=== PATIENT | female | born 1960 | race Caucasian/White ===

== ENCOUNTER 2017-09-10 19:49 | Inpatient (IN) | payer OTHER ==
[2017-09-10 20:43] LABS: Bilirubin Negative (Negative); Blood, Urine Small (Negative); Glucose, Urine (Dipstick) >=1000 mg/dL (Negative); Ketone, Urine 80 mg/dL (Negative); Nitrite Negative (Negative); Protein, Urine (Dipstick) 30 mg/dL (Neg-Trace); Urobilinogen 0.2 mg/dL (0.2-1.0)
[2017-09-10 20:48] LABS: Bacteria/HPF Rare-Few HPF (None Seen); Hyaline Casts/LPF 0-3 HYALINE CAST LPF (0-3 Hyaline); WBC/HPF 21-50 HPF (0-3)
[2017-09-10 20:50] LABS: #Eosinphils 0.1 thou/uL (0.0-0.7); #Lymphocytes 1.5 thou/uL (1.20-3.40); #Monocytes 0.9 thou/uL (0.11-0.59); #Neutrophils 13.7 thou/uL (1.40-6.50); %Basophils 0.1 % (0.0-1.0); %Eosinophils 0.5 % (0.0-10.0); %Lymphocytes 9.1 % (21.0-51.0); %Monocytes 5.3 % (0.0-10.0); Hematocrit 41.1 % (36.0-47.0); Mean Platelet Volume 8.1 fL (7.4-10.4); Red Blood Cell (RBC) Count 4.68 mill/uL (4.20-5.40); White Blood Cell (WBC) Count 16.2 thou/uL (4.8-10.8)
[2017-09-10 20:56] LABS: Yeast-All Forms 1+ HPF (None Seen)
[2017-09-10] MEDS ORDERED: Ondansetron HCl/PF 4 MG/2 ML Vial ONE (20:56)
[2017-09-10] MEDS ORDERED: Morphine 4 MG/ML VIAL ONE (20:56)
[2017-09-10 21:04] LABS: Lactic Acid - Sepsis 2.4 mmol/L (0.5-2.2)
[2017-09-10 21:08] LABS: ALT (SGPT) 16 U/L (8-55); AST (SGOT) 15 U/L (5-34); Alkaline Phosphatase 127 U/L (40-150); Anion Gap 14 mmol/L (10-20); BUN (Urea Nitrogen) 6 mg/dL (9.8-20.1); Bilirubin, Total 2.2 mg/dL (0.2-1.2); Calc. Creatinine Clearance 0 mL/min (70-130); Calcium 9.4 mg/dL (7.8-10.44); Carbon Dioxide 25 mmol/L (22-29); Chloride 100 mmol/L (98-107); Estimated GFR-MDRD 79; Globulin 3.9 g/dL (2.4-3.5); Protein, Total 7.5 g/dL (6.0-8.3)
--- NOTE | 2017-09-10 21:24 | RAD ---
RIGHT FOOT THREE VIEWS: History: Right foot pain and swelling. Vomiting. Comparison: None. FINDINGS: There is soft tissue swelling. No radiographic evidence of osteomyelitis. Lisfranc alignment is maintained. There is no fracture. IMPRESSION: 1. Soft tissue swelling. Correlate for cellulitis. 2. No fracture. POS: [facility]
--- NOTE | 2017-09-10 22:13 | PDOC.EVN ---
Event Note - Event Note Event Note: [id number] 1. rT FOOT CELLULITIS 2. hYPOKALEMIA 3. DM type 2 plan; see orders
[2017-09-10] MEDS ORDERED: Piperacillin/Tazobactam 4.5 GM in Sodium Chloride 0.9% 100 ML IVPB SCH (22:30)
[2017-09-10] MEDS ORDERED: Acetaminophen 325 MG TAB PO PRN (23:24)
[2017-09-10] MEDS ORDERED: HYDROcodone/Acetaminophen 5/325 mg Tablet PO PRN (23:24)
[2017-09-10] MEDS ORDERED: Sodium Chloride 0.9% 1,000 ML IV SCH (23:30)
[2017-09-11 04:05] LABS: #Eosinphils 0.1 thou/uL (0.0-0.7); #Lymphocytes 1.7 thou/uL (1.20-3.40); #Monocytes 0.8 thou/uL (0.11-0.59); #Neutrophils 9.3 thou/uL (1.40-6.50); %Basophils 0.1 % (0.0-1.0); %Eosinophils 0.7 % (0.0-10.0); %Monocytes 6.4 % (0.0-10.0); Hematocrit 32.5 % (36.0-47.0); Mean Platelet Volume 8.1 fL (7.4-10.4); Red Blood Cell (RBC) Count 3.72 mill/uL (4.20-5.40); White Blood Cell (WBC) Count 11.8 thou/uL (4.8-10.8)
[2017-09-11 04:18] LABS: Anion Gap 11 mmol/L (10-20); BUN (Urea Nitrogen) 6 mg/dL (9.8-20.1); Calc. Creatinine Clearance 0 mL/min (70-130); Calcium 8.2 mg/dL (7.8-10.44); Carbon Dioxide 25 mmol/L (22-29); Chloride 104 mmol/L (98-107); Estimated GFR-MDRD 87
--- NOTE | 2017-09-11 06:34 | HP ---
DATE OF ADMISSION: 09/10/2017 CHIEF COMPLAINT: Right foot pain. HISTORY OF PRESENT ILLNESS: Patient is a 56-year-old female with no significant past medical history , started having right foot swelling and erythema symptoms started approximately 2 weeks back after s he stepped on the thorn. Patient's symptoms persisted, so patient went and saw the PCP on last . Patient was started on Levaquin since then. Patient is taking Levaquin, but the symptoms did not get better. Patient had some pus drainage, so the son had drained the abscess, tied the right fo ot with a needle on Sunday morning. Since then, the pain persisted and they got worse / associ ed with some swelling. Complains of pain getting worse on walking, complains some pus drainage also, complains of right foot erythema. Denies any fever, but complains of chills. PAST MEDICAL HISTORY: None. PAST SURGICAL HISTORY: Hysterectomy. SOCIAL HISTORY: Denies smoking, denies alcohol, denies any drugs. FAMILY HISTORY: Positive for heart problems. REVIEW OF SYSTEMS: Constitutional: Positive for chills. Eyes: Denies any vision problems. Ears: Denies any hearing loss. Neck: Denies any neck pain. Cardiovascular System: Denies any chest soila ns or palpitations. Respiratory system: Denies any cough, denies any sputum production. Gastrointe stinal: Denies . Musculoskeletal: Positive for right foot swelling and right foot erythema. Integumentary: Positive for right foot erythema. Cranial nerve system: Denies syncope. All other review of systems are reviewed and are negative. PHYSICAL EXAMINATION: CONSTITUTIONAL/VITAL SIGNS: At the time of H and P performed, blood pressure is 111/52, heart rate o f 104, pulse ox 99%. GENERAL: The patient appears tired. HEENT: Anterior naris patent. Nose normal. Ears normal. Teeth intact. Tongue is moist. NECK: Supple, no JVD. CARDIOVASCULAR SYSTEM: S1, S2 present. Regular rate and rhythm, no murmurs, no rubs, no gallops. RESPIRATORY SYSTEM: No wheezing, no rhonchi. Breath sounds bilaterally. GASTROINTESTINAL SYSTEM: Abdomen is soft, nontender, no guarding, no organomegaly, no masses felt. MUSCULOSKELETAL: Positive for right foot erythema. Positive for right foot pus drainage seen on the plantar side. Positive for swelling, positive for warm to touch. INTEGUMENTARY: Positive for right foot erythema. PSYCHIATRIC: Mood appropriate at this time. CRANIAL NERVOUS SYSTEM: Awake, follows commands. Speech clear. Strength intact. Sensory intact. LABORATORY DATA: Labs at the time of H and P performed, white count 16.2, platelet count is 270. BM P shows sodium 136, potassium 3, chloride 100, CO2 25, BUN of 6, creatinine 0.76, lactic acid 2.4. A lbumin 3.9. UA positive for 7-10 rbc's, 21 to 50 wbc's. X-ray of the foot positive for soft tissue swelling cellulitis. ASSESSMENT AND PLAN: The patient is a 56-year-old female: 1. Right foot cellulitis plus abscess. Plan to consult . Plan to start patient on intravenous antibiotics. Plan to monitor the patient closely. Plan to keep patient n.p.o. after midnight. 2. Sepsis. Continue intravenous antibiotics. We will send blood cultures also. We will follow the patient closely. 3. Pain, p.r.n. pain meds. 4. Hypokalemia. Replace potassium. 5. Diabetes type 2, new onset. Monitor blood sugars. We will check A1c levels also. We will start patient on insulin sliding scale. The case was discussed in detail with the patient.
[2017-09-11] MEDS ORDERED: Morphine 2 mg/2ml in 0.9% NaCl PF SYRINGE ONE (06:56)
[2017-09-11] MEDS ORDERED: Acetaminophen 1,000 MG in Premix Bag 1 BAG IVPB PRN (08:52)
[2017-09-11] MEDS ORDERED: Ketorolac Tromethamine 30 MG/ML VIAL IVP PRN (08:52)
--- NOTE | 2017-09-11 08:59 | HP ---
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 She 2 weeks ago experienced a thorn in her plantar right foot. Today is and Sunday last week her physician started her on Levaquin. She has had some developing infect ion. On Sunday her son squeezed the pus out of the plantar wound. She presents to the emergency r oom last night, ER hold, because of bed shortages and plain x-rays of foot obtained and noted to reve al soft tissue swelling, but no bony changes. Orthopedic consultation was made for the deep infectio n of the right foot. I was asked by Orthopedics to see her instead. The patient previously did not have a diagnosis of any medical problems. In the emergency room, her Accu-Cheks were noted to be liv vated to 295. Lactic acid 2.4. She has been started on vancomycin and Zosyn, in fact is receiving h er second dose of vancomycin this morning. ALLERGIES: None. TOBACCO: None. ALCOHOL: None. MEDICATIONS: None at home. PAST SURGICAL HISTORY: Total abdominal hysterectomy, unilateral salpingo-oophorectomy, colonoscopy i n March 2017 that was normal. PAST MEDICAL HISTORY: Noncontributory except for newly diagnosed diabetes this admission. REVIEW OF SYSTEMS: Ten point noncontributory. No cardiac history. PHYSICAL EXAMINATION: VITAL SIGNS: Blood pressure 104/46, 72, 14, 98.4 degrees, 88 kilograms. HEENT: Unremarkable. LUNGS: Clear to auscultation. CARDIAC: Regular rate and rhythm without murmur or gallop. ABDOMEN: Soft, nontender. EXTREMITIES: Palpable femoral, popliteal, dorsalis pedis, posterior tibial pulses. Right foot revea ls severe cellulitis over the dorsum of foot and plantar. She has a plantar ulcer beneath the third toe metatarsophalangeal area. This is a small opening, but there is purulent discharge, when I compr ess it, it is very tender. Cultures were submitted, but difficult to obtain deep cultures due to the tenderness. There is severe swelling and cellulitis. LABORATORY: Sodium 137, potassium 3.4, BUN 6, creatinine 0.7, glucose 295. White count 16 on admiss ion, at 11:00 repeat this morning, hemoglobin 11. ASSESSMENT AND PLAN: 1. Severe diabetic infection, right foot. Will plan incision and drainage of the abscess and amputa tion of toes as indicated. Hopefully, we can avoid this. We will probably place a wound VAC. Risk of infection, bleeding, reoperation, amputation, and she understands she will have an open wound with wound care, probably a VAC dressing. She will need intravenous antibiotics for a few days. I expec t hospitalization at least 2-4 days. She will need oral antibiotics once discharged home. 2. Newly diagnosed diabetes. 3. Metabolic syndrome with obesity.
[2017-09-11] MEDS ORDERED: Lactated Ringer's 1,000 ML IV SCH (09:00)
[2017-09-11] MEDS ORDERED: Heparin 5,000 UNITS/ML VIAL ONE (09:06)
[2017-09-11] MEDS ORDERED: Fentanyl 100 MCG/2 ML VIAL ONE (10:55)
[2017-09-11] MEDS ORDERED: Insulin Regular 300 UNITS/3 ML VIAL ONE (11:04)
[2017-09-11] MEDS ORDERED: Ondansetron HCl/PF 4 MG/2 ML Vial IVP PRN (12:54)
[2017-09-11] MEDS ORDERED: HYDROmorphone 2 MG/ML VIAL SLOW IVP PRN (12:54)
[2017-09-11] MEDS ORDERED: HYDROmorphone 0.5 MG/0.5 ML SYRINGE ONE ×2 (12:59→14:38)
--- NOTE | 2017-09-11 13:17 | PDOC.PN ---
- Subjective Encounter Start Date: 09/11/17 Encounter Start Time: 11:30 Subjective: is npo to go to OR -: no sob -: had thorn injury 2 weeks back - Objective MAR Reviewed: Yes Result Diagrams: 09/11/17 03:33 09/11/17 03:33 Additional Labs: Accuchecks 09/11/17 10:58 POC Glucose 241 H Phys Exam - Physical Examination HEENT: PERRLA, moist MMs Neck: no JVD, supple Respiratory: no wheezing, no rales Cardiovascular: RRR, no significant murmur Gastrointestinal: soft, non-tender, positive bowel sounds Musculoskeletal: pulses present right foot edema, has plantar ulcer over 2,3,4 metatarsal with purulence+ Neurological: non-focal, moves all 4 limbs Psychiatric: A&O x 3 Dx/Plan (1) Diabetic ulcer of right foot Code(s): E11.621 - TYPE 2 DIABETES MELLITUS WITH FOOT ULCER; L97.519 - NON-PRS CHRONIC ULCER OTH PRT RIGHT FOOT W UNSP SEVERITY Status: Acute Qualifiers: Diabetic foot ulcer location: midfoot Diabetes mellitus type: type 2 (2) DM type 2 (diabetes mellitus, type 2) Status: Acute Qualifiers: Diabetes mellitus complication status: with unspecified complications 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: without [place] use Qualified Code( s): E11.8 - Type 2 diabetes mellitus with unspecified complications Comment: new onset (3) Hypokalemia Code(s): E87.6 - HYPOKALEMIA Status: Acute (4) Chronic anemia Code(s): D64.9 - ANEMIA, UNSPECIFIED Status: Chronic (5) UTI (urinary tract infection) Status: Acute Qualifiers: Urinary tract infection type: acute cystitis Hematuria presence: without hematuria Qualified Code(s): N30.00 - Acute cystitis without hematuria (6) Sepsis Code(s): A41.9 - SEPSIS, UNSPECIFIED ORGANISM Status: Acute Qualifiers: Sepsis type: sepsis due to unspecified organism Qualified Code(s): A41.9 - Sepsis, unspecified organism - Plan is on vanc and zosyn -: will add metformin 500mg bid with coverage -: replace potassium -: is going for debridement to OR today -: will f/u * . Review of Systems - Medications/Allergies Allergies/Adverse Reactions: Allergies Allergy/AdvReac Type Severity Reaction Status Date / Time No Known Allergies Allergy Unverified 09/10/17 22:23 Medications: Current Medications Acetaminophen (Tylenol) 650 mg PO Q4H PRN PRN Reason: Headache/Fever or Pain Heparin Sodium (Porcine) (Heparin) 5,000 units SC TID MARCELO Hydromorphone HCl (Pacu-Dilaudid) 0.5 mg SLOW IVP Q10MIN PRN PRN Reason: Moderate to Severe Pain (6-10) Stop: 09/11/17 15:54 Piperacillin Sod/Tazobactam (Sod 4.5 gm/ Sodium Chloride) 100 mls @ 200 mls/hr IVPB Q8HR MARC[facility]O Vancomycin HCl 1.5 gm/ Sodium (Chloride) 300 mls @ 200 mls/hr IVPB Q12HR [facility]O Acetaminophen 1,000 mg/ Device 100 mls @ 400 mls/hr IVPB Q6H PRN PRN Reason: Fever/Mild Pain Stop: 09/12/17 08:53 Ketorolac Tromethamine (Toradol) 30 mg IVP Q6H PRN PRN Reason: Moderate Pain (4-6) Stop: 09/16/17 08:53 Morphine Sulfate (Pacu-Morphine Sulfate) 4 mg SLOW IVP ONE PRN PRN Reason: Moderate to Severe Pain (6-10) Stop: 09/11/17 15:54 Morphine Sulfate/Sodium Chloride (Morphine 0.9% Nacl Pf 2 Mg/2ml) 2 mg SLOW IVP Q4H PRN PRN Reason: Severe Pain (7-10) Ondansetron HCl (Pacu-Zofran) 4 mg IVP ONE PRN PRN Reason: Nausea/Vomiting Stop: 09/11/17 15:54 Polyethylene Glycol (Miralax) 17 gm PO DAILY MARCELO Sodium Chloride (Flush - Normal Saline) 10 ml IVF Q12HR MARCELO Sodium Chloride (Flush - Normal Saline) 10 ml IVF PRN PRN PRN Reason: Saline Flush
[2017-09-11 16:10] VITALS: BMI 31.8
[2017-09-11] MEDS ORDERED: Metoclopramide HCl 10 MG/2 ML VIAL ONE (16:55)
[2017-09-11] MEDS ORDERED: Propofol 200 MG/20 ML VIAL ONE (16:55)
[2017-09-11] MEDS ORDERED: ePHEDrine/0.9% NaCl/PF SYRINGE 50 mg/10 ml ONE (16:55)
[2017-09-11] MEDS ORDERED: PHENYLEPHRINE-NS 100 MCG/ML 10 ML SYRINGE ONE (16:55)
[2017-09-11] MEDS ORDERED: Ondansetron HCl/PF 4 MG/2 ML Vial ONE (16:55)
[2017-09-11] MEDS ORDERED: FLU VACC QS2017-18 36 mo. & older 0.5 ML SYRINGE IM ONE (17:00)
[2017-09-11] MEDS ORDERED: Acetaminophen 500 MG TAB PO PRN (18:05)
[2017-09-11] MEDS ORDERED: traMADol HCl 50 MG TAB PO PRN ×2 (18:05)
[2017-09-11] MEDS ORDERED: Ibuprofen 200 MG TAB PO PRN (18:05)
--- NOTE | 2017-09-11 18:19 | OP ---
DATE OF PROCEDURE: 09/11/2017 PREOPERATIVE DIAGNOSES: Severe diabetic foot infection right with status post plantar thorn injury t wo weeks ago, newly diagnosed diabetes mellitus. No evidence of peripheral arterial disease. POSTOPERATIVE DIAGNOSES: Severe diabetic foot infection right with status post thorn plantar injury two weeks ago, newly diagnosed diabetes mellitus. No evidence of peripheral arterial disease. Deep infection plantar with undermining. PROCEDURES PERFORMED: Sharp excision blistering skin plantar foot with incision and drainage of woun d, approximately 3 cm in length and deep approximately 2 cm undermining with necrotic tissue with a s harp excisional debridement of necrotic undermining tissue, deep cultures submitted. Wound Care arri kaley and placed a wound VAC on the wound. No evidence radiologically or clinically of osteomyelitis. ANESTHESIA: General anesthesia. PROCEDURE IN DETAIL: The patient was taken to the operating room where under general anesthesia, the right foot was prepared with ChloraPrep and draped in routine fashion. She had a cellulitic reactio n over the dorsum of the foot. A small incision was made longitudinally between the second and third and cleaned the third and fourth toes and there was no evidence of purulent material, but this wound was left opened and irrigated. On the plantar aspect of the foot, there was a penetrating wound liz t had undermined circumferentially to the base of the toes and proximally. This was opened longitudi gerri exposing undermined area and debrided sharply necrotic underlying soft tissue. Deep cultures o btained and submitted to microbiology. 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 Wound Care team arri kaley and placed a wound VAC. The patient tolerated the procedure well.
[2017-09-11] MEDS: Piperacillin/Tazobactam 4.5 GM in Sodium Chloride 0.9% 100 ML IVPB SCH ×3 (20:19→22:23)
[2017-09-11] MEDS: Heparin 5,000 UNITS/ML VIAL SC SCH ×3 (21:30→23:34)
[2017-09-11] MEDS: Vancomycin HCl 1.5 GM in Sodium Chloride 0.9% 250 ML 300 ML IVPB SCH ×2 (21:32→23:24)
[2017-09-11] MEDS: Enoxaparin Sodium 40 MG/0.4 ML SYRINGE SC SCH (22:22)
[2017-09-12] MEDS: Piperacillin/Tazobactam 4.5 GM in Sodium Chloride 0.9% 100 ML IVPB SCH ×3 (06:03→22:52)
[2017-09-12 06:09] LABS: Hemoglobin A1c 12.7 % (4.0-6.0)
[2017-09-12] MEDS: metFORMIN 500 MG TAB PO SCH ×3 (08:00→16:38)
[2017-09-12 08:06] LABS: Vancomycin, Trough 29.8 ug/mL
[2017-09-12] MEDS: Vancomycin HCl 1.5 GM in Sodium Chloride 0.9% 250 ML 300 ML IVPB SCH ×2 (08:45→22:52)
[2017-09-12] MEDS ORDERED: Ondansetron ODT 4 MG TAB PO PRN (08:47)
[2017-09-12] MEDS: Ondansetron HCl/PF 4 MG/2 ML Vial IVP PRN ×3 (09:16→22:29)
[2017-09-12] MEDS: Polyethylene Glycol 3350 17 GM Packet PO SCH (11:14)
[2017-09-12] MEDS ORDERED: Dextrose 5% in Water 1,000 ML IV PRN (11:56)
[2017-09-12] MEDS ORDERED: Insulin Regular 300 UNITS/3 ML VIAL SC PRN (11:56)
[2017-09-12] MEDS ORDERED: Dextrose 50% Abboject 50 ML SYRINGE IVP PRN (11:56)
--- NOTE | 2017-09-12 12:06 | PRG ---
DATE OF SERVICE: 09/12/2017 Ms. Kurtz is doing well after drainage of her foot abscess. She has a wound VAC. We will plan to view this wound tomorrow. She remains afebrile. Cultures today, many gram positive cocci in pairs a nd chains and identification pending. ASSESSMENT AND PLAN: 1. View wound tomorrow. Continue antibiotics and wound care. Plan, discharge home on wound VAC, st art her on oral antibiotics. 2. Newly diagnosed diabetes mellitus, hemoglobin A1c 12. The patient reports weight loss of 50 poun ds over the last year. She reports that she lost her four years ago and has continued to los e weight. She had EGD and colonoscopy earlier this year that was normal.
[2017-09-12] MEDS: Insulin Regular 300 UNITS/3 ML VIAL SC PRN ×2 (12:54→16:35)
--- NOTE | 2017-09-12 14:23 | PDOC.PN ---
- Subjective Encounter Start Date: 09/12/17 Encounter Start Time: 12:00 Subjective: feels better, some nausea - Objective MAR Reviewed: Yes Vital Signs & Weight: Vital Signs (12 hours) Temp Pulse Resp BP Pulse Ox 09/12/17 08:00 97.8 F 75 16 98/64 94 L 09/12/17 04:00 98.4 F 78 20 100/62 92 L Weight Admit Weight 197 lb Weight 197 lb Result Diagrams: 09/11/17 03:33 09/11/17 03:33 Additional Labs: Accuchecks 09/12/17 09/12/17 09/11/17 11:36 04:21 19:09 POC Glucose 312 H 323 H 273 H 09/11/17 09/11/17 16:27 13:25 POC Glucose 255 H 230 H Phys Exam - Physical Examination HEENT: PERRLA, moist MMs Neck: no JVD, supple Respiratory: no wheezing, no rales Cardiovascular: RRR, no significant murmur Gastrointestinal: soft, non-tender, positive bowel sounds Musculoskeletal: pulses present right foot in dressing and wound vac Neurological: non-focal, moves all 4 limbs Psychiatric: A&O x 3 Dx/Plan (1) Diabetic ulcer of right foot Code(s): E11.621 - TYPE 2 DIABETES MELLITUS WITH FOOT ULCER; L97.519 - NON-PRS CHRONIC ULCER OTH PRT RIGHT FOOT W UNSP SEVERITY Status: Acute Qualifiers: Diabetic foot ulcer location: midfoot Diabetes mellitus type: type 2 (2) DM type 2 (diabetes mellitus, type 2) Status: Acute Qualifiers: Diabetes mellitus complication status: with unspecified complications Diabetes mellitus longterm insulin use: without longterm use Qualified Code( s): E11.8 - Type 2 diabetes mellitus with unspecified complications Comment: new onset (3) Hypokalemia Code(s): E87.6 - HYPOKALEMIA Status: Acute (4) Chronic anemia Code(s): D64.9 - ANEMIA, UNSPECIFIED Status: Chronic (5) UTI (urinary tract infection) Status: Acute Qualifiers: Urinary tract infection type: acute cystitis Hematuria presence: without hematuria Qualified Code(s): N30.00 - Acute cystitis without hematuria (6) Sepsis Code(s): A41.9 - SEPSIS, UNSPECIFIED ORGANISM Status: Acute Qualifiers: Sepsis type: sepsis due to unspecified organism Qualified Code(s): A41.9 - Sepsis, unspecified organism - Plan labs in am -: will start her on levemir, hold metformin if she is nauseated -: is on vanc and zosyn -: cm for help with wound vac for outpt use per -: to amb as tolerated, ultram, motrin prn * . Review of Systems - Medications/Allergies Allergies/Adverse Reactions: Allergies Allergy/AdvReac Type Severity Reaction Status Date / Time No Known Allergies Allergy Unverified 09/10/17 22:23 Medications: Current Medications Acetaminophen (Tylenol) 1,000 mg PO Q6H PRN PRN Reason: Moderate to Severe Pain (6-10) Dextrose/Water (Dextrose 50%) 25 gm IVP PRN PRN PRN Reason: HYPOGLYCEMIA PROTOCOL Enoxaparin Sodium (Lovenox) 40 mg SC 2100 MARCELO Last Admin: 09/11/17 22:22 Dose: 40 mg Glucagon (Glucagon) 1 mg IM PRN PRN PRN Reason: HYPOGLYCEMIA PROTOCOL Piperacillin Sod/Tazobactam (Sod 4.5 gm/ Sodium Chloride) 100 mls @ 200 mls/hr IVPB Q8HR MARCELO Last Admin: 09/12/17 06:03 Dose: 100 mls Vancomycin HCl 1.5 gm/ Sodium (Chloride) 300 mls @ 200 mls/hr IVPB Q12HR MARCELO Last Admin: 09/12/17 08:45 Dose: Not Given Dextrose/Water (D5w) 1,000 mls @ 0 mls/hr IV INF PRN; As Directed PRN Reason: HYPOGLYCEMIA PROTOCOL Insulin Detemir 10 units/ (Miscellaneous Medication) 0.1 mls @ 0 mls/hr SC BID MARCELO Ibuprofen (Motrin) 600 mg PO Q6H PRN PRN Reason: Pain Insulin Human Regular (Humulin R) 0 units SC .MODERATE SLIDING SC PRN; Protocol PRN Reason: MODERATE SLIDING SCALE Last Admin: 09/12/17 12:54 Dose: 8 unit Insulin Human Regular (Humulin R) 0 units SC .BEDTIME SLIDING SC PRN; Protocol PRN Reason: BEDTIME SLIDING SCALE Ketorolac Tromethamine (Toradol) 30 mg IVP Q6H PRN PRN Reason: Moderate Pain (4-6) Stop: 09/16/17 08:53 Metformin HCl (Glucophage) 500 mg PO BID-[facility] Last Admin: 09/12/17 11:13 Dose: Not Given Morphine Sulfate/Sodium Chloride (Morphine 0.9% Nacl Pf 2 Mg/2ml) 2 mg SLOW IVP Q4H PRN PRN Reason: Severe Pain (7-10) Ondansetron HCl (Zofran) 4 mg IVP Q6H PRN PRN Reason: Nausea/Vomiting Last Admin: 09/12/17 09:16 Dose: 4 mg Ondansetron HCl (Zofran Odt) 4 mg PO Q6H PRN PRN Reason: Nausea/Vomiting Polyethylene Glycol (Miralax) 17 gm PO DAILY [facility] Last Admin: 09/12/17 11:14 Dose: 17 gm Sodium Chloride (Flush - Normal Saline) 10 ml IVF Q12HR [facility] Last Admin: 09/12/17 11:13 Dose: 10 ml Sodium Chloride (Flush - Normal Saline) 10 ml IVF PRN PRN PRN Reason: Saline Flush Tramadol HCl (Ultram) 50 mg PO Q6H PRN PRN Reason: Mild-Moderate Pain (1-5) Tramadol HCl (Ultram) 100 mg PO Q6H PRN PRN Reason: Moderate to Severe Pain (6-10)
--- NOTE | 2017-09-12 18:07 | EKG ---
Test Reason : SURGERY Blood Pressure : / mmHG Vent. Rate : 073 BPM Atrial Rate : 073 BPM P-R Int : 156 ms QRS Dur : 100 ms QT Int : 410 ms P-R-T Axes : 049 035 057 degrees QTc Int : 451 ms Normal sinus rhythm Normal ECG Confirmed by AUSTIN XIAO ([id number]) on 09/12/2017 6:07:10 PM Referred By: LAILA Confirmed By:AUSTIN XIAO
[2017-09-12] MEDS: Enoxaparin Sodium 40 MG/0.4 ML SYRINGE SC SCH (22:30)
[2017-09-12] MEDS: Insulin Detemir 100 UNITS/ML 10 UNITS in Pre-Filled Syringe 1 EACH SC SCH (22:34)
[2017-09-13] MEDS: Piperacillin/Tazobactam 4.5 GM in Sodium Chloride 0.9% 100 ML IVPB SCH (06:29)
[2017-09-13] MEDS: Ondansetron HCl/PF 4 MG/2 ML Vial IVP PRN ×2 (06:29→13:44)
[2017-09-13 07:19] LABS: #Eosinphils 0.3 thou/uL (0.0-0.7); #Lymphocytes 1.5 thou/uL (1.20-3.40); #Monocytes 0.7 thou/uL (0.11-0.59); #Neutrophils 7.1 thou/uL (1.40-6.50); %Basophils 0.3 % (0.0-1.0); %Eosinophils 3.5 % (0.0-10.0); %Lymphocytes 15.6 % (21.0-51.0); %Monocytes 7.1 % (0.0-10.0); Hematocrit 35.3 % (36.0-47.0); Mean Platelet Volume 7.9 fL (7.4-10.4); Red Blood Cell (RBC) Count 4.03 mill/uL (4.20-5.40); White Blood Cell (WBC) Count 9.6 thou/uL (4.8-10.8)
[2017-09-13 07:39] LABS: ALT (SGPT) 16 U/L (8-55); AST (SGOT) 13 U/L (5-34); Alkaline Phosphatase 97 U/L (40-150); Anion Gap 12 mmol/L (10-20); BUN (Urea Nitrogen) 27 mg/dL (9.8-20.1); Calc. Creatinine Clearance 43 mL/min (70-130); Carbon Dioxide 23 mmol/L (22-29); Chloride 107 mmol/L (98-107); Estimated GFR-MDRD 25; Globulin 3.1 g/dL (2.4-3.5); Lipase 22 U/L (8-78); Protein, Total 5.9 g/dL (6.0-8.3)
[2017-09-13] MEDS: Sodium Chloride 0.9% 1,000 ML IV SCH ×2 (08:59→17:47)
[2017-09-13] MEDS: Insulin Detemir 100 UNITS/ML 10 UNITS in Pre-Filled Syringe 1 EACH SC SCH ×2 (09:00→20:31)
[2017-09-13] MEDS: Polyethylene Glycol 3350 17 GM Packet PO SCH (09:01)
--- NOTE | 2017-09-13 12:50 | PDOC.PN ---
- Subjective Encounter Start Date: 09/13/17 Encounter Start Time: 09:45 Subjective: c/o nausea and vomiting, is unable to keep anything down -: no abd pain - Objective MAR Reviewed: Yes Vital Signs & Weight: Vital Signs (12 hours) Temp Pulse Resp BP Pulse Ox 09/13/17 11:07 98.1 F 69 20 129/75 97 09/13/17 08:00 97.5 F L 66 20 114/49 L 96 09/13/17 04:00 98.5 F 75 20 101/61 94 L Weight Admit Weight 197 lb Weight 197 lb I&O: 09/12/17 09/13/17 09/14/17 06:59 06:59 06:59 Intake Total 960 Output Total 600 Balance 360 Result Diagrams: 09/13/17 07:06 09/13/17 07:06 Additional Labs: Accuchecks 09/13/17 09/13/17 09/12/17 11:09 04:24 19:19 POC Glucose 217 H 248 H 233 H 09/12/17 16:18 POC Glucose 231 H Phys Exam - Physical Examination HEENT: PERRLA, moist MMs Neck: no JVD, supple Respiratory: no wheezing, no rales Cardiovascular: RRR, no significant murmur Gastrointestinal: soft, non-tender, no distention, positive bowel sounds Musculoskeletal: no edema, pulses present right foot in wound vac Neurological: non-focal, moves all 4 limbs Psychiatric: A&O x 3 Dx/Plan (1) JONATHAN (acute kidney injury) Code(s): N17.9 - ACUTE KIDNEY FAILURE, UNSPECIFIED Status: Acute (2) Diabetic ulcer of right foot Code(s): E11.621 - TYPE 2 DIABETES MELLITUS WITH FOOT ULCER; L97.519 - NON-PRS CHRONIC ULCER OTH PRT RIGHT FOOT W UNSP SEVERITY Status: Acute Qualifiers: Diabetic foot ulcer location: midfoot Diabetes mellitus type: type 2 (3) DM type 2 (diabetes mellitus, type 2) Status: Acute Qualifiers: Diabetes mellitus complication status: with unspecified complications 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: without 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 use Qualified Code( s): E11.8 - Type 2 diabetes mellitus with unspecified complications Comment: new onset (4) Hypokalemia Code(s): E87.6 - HYPOKALEMIA Status: Acute (5) Chronic anemia Code(s): D64.9 - ANEMIA, UNSPECIFIED Status: Chronic (6) UTI (urinary tract infection) Status: Acute Qualifiers: Urinary tract infection type: acute cystitis Hematuria presence: without hematuria Qualified Code(s): N30.00 - Acute cystitis without hematuria (7) Sepsis Code(s): A41.9 - SEPSIS, UNSPECIFIED ORGANISM Status: Acute Qualifiers: Sepsis type: sepsis due to unspecified organism Qualified Code(s): A41.9 - Sepsis, unspecified organism (8) Nausea & vomiting Code(s): R11.2 - NAUSEA WITH VOMITING, UNSPECIFIED Status: Acute Qualifiers: Vomiting type: unspecified - Plan iv hydration, decrease dose of zosyn, dc vanc -: wound vac for home use need to be arranged -: is on levemir bid, start glipizide, dc metformin -: to amb in hallway as tolerated -: dc plan when her renal function and nausea stabilize * . Review of Systems - Medications/Allergies Allergies/Adverse Reactions: Allergies Allergy/AdvReac Type Severity Reaction Status Date / Time No Known Allergies Allergy Unverified 09/10/17 22:23 Medications: Current Medications Acetaminophen (Tylenol) 1,000 mg PO Q6H PRN PRN Reason: Moderate to Severe Pain (6-10) Dextrose/Water (Dextrose 50%) 25 gm IVP PRN PRN PRN Reason: HYPOGLYCEMIA PROTOCOL Enoxaparin Sodium (Lovenox) 40 mg SC 2100 [facility] Last Admin: 09/12/17 22:30 Dose: 40 mg Glipizide (Glucotrol) 5 mg PO DAILY-[facility] Glucagon (Glucagon) 1 mg IM PRN PRN PRN Reason: HYPOGLYCEMIA PROTOCOL Dextrose/Water (D5w) 1,000 mls @ 0 mls/hr IV INF PRN; As Directed PRN Reason: HYPOGLYCEMIA PROTOCOL Insulin Detemir 10 units/ (Miscellaneous Medication) 0.1 mls @ 0 mls/hr SC BID [facility] Last Admin: 09/13/17 09:00 Dose: 0.1 mls Sodium Chloride (Normal Saline 0.9%) 1,000 mls @ 125 mls/hr IV .Q8H [facility] Last Admin: 09/13/17 08:59 Dose: 1,000 mls Piperacillin Sod/Tazobactam Sod 2.25 gm/ Miscellaneous Medication 1 each/ Sodium Chloride 100 mls @ 200 mls/hr IVPB Q8HR [facility] Insulin Human Regular (Humulin R) 0 units SC .MODERATE SLIDING SC PRN; Protocol PRN Reason: MODERATE SLIDING SCALE Last Admin: 09/12/17 16:35 Dose: 4 unit Insulin Human Regular (Humulin R) 0 units SC .BEDTIME SLIDING SC PRN; Protocol PRN Reason: BEDTIME SLIDING SCALE Ketorolac Tromethamine (Toradol) 30 mg IVP Q6H PRN PRN Reason: Moderate Pain (4-6) Stop: 09/16/17 08:53 Morphine Sulfate/Sodium Chloride (Morphine 0.9% Nacl Pf 2 Mg/2ml) 2 mg SLOW IVP Q4H PRN PRN Reason: Severe Pain (7-10) Ondansetron HCl (Zofran) 4 mg IVP Q6H PRN PRN Reason: Nausea/Vomiting Last Admin: 09/13/17 06:29 Dose: 4 mg Ondansetron HCl (Zofran Odt) 4 mg PO Q6H PRN PRN Reason: Nausea/Vomiting Polyethylene Glycol (Miralax) 17 gm PO DAILY [facility] Last Admin: 09/13/17 09:01 Dose: Not Given Sodium Chloride (Flush - Normal Saline) 10 ml IVF Q12HR [facility] Last Admin: 09/13/17 09:01 Dose: 10 ml Sodium Chloride (Flush - Normal Saline) 10 ml IVF PRN PRN PRN Reason: Saline Flush Tramadol HCl (Ultram) 50 mg PO Q6H PRN PRN Reason: Mild-Moderate Pain (1-5) Tramadol HCl (Ultram) 100 mg PO Q6H PRN PRN Reason: Moderate to Severe Pain (6-10)
[2017-09-13] MEDS: Insulin Regular 300 UNITS/3 ML VIAL SC PRN ×2 (13:41→18:04)
[2017-09-13] MEDS: Piperacillin/Tazobactam 2.25 GM, Admixture Fee 1 EACH in Sodium Chloride 0.9% 100 ML IVPB SCH ×2 (13:51→23:16)
--- NOTE | 2017-09-13 16:43 | CT ---
CT OF THE ABDOMEN AND PELVIS WITHOUT IV CONTRAST: Date: 09/13/17 INDICATION: Abdominal pain, nausea, and vomiting, with a history of recent foot surgery. COMPARISON: None. FINDINGS: There are small bilateral pleural effusions with bibasilar atelectasis. There is a small pericardial effusion. There is a small hiatal hernia. The spleen is upper limits of normal measuring 12.6 cm. There are numerous splenic granuloma. Unopaci fied liver is unremarkable. The pancreas and adrenal glands are unremarkable. There is slight enlargement of the right kidney in relationship to the left with mild perinephric str anding. No hydronephrosis is evident. No renal or ureteral calculus is noted. The bladder is decompre ssed. The colon is of normal caliber. There is a normal appendix in the right lower quadrant. The visualize d small bowel is of normal caliber. No drainable fluid collection is evident. There is scattered degenerative and osteoarthritic change. No definite acute osseous abnormality is e vident. IMPRESSION: 1. Slight asymmetric hypertrophy of the right kidney with mild perinephric stranding may reflect seq uelae of a pyelonephritis. Recommend correlation with the clinical examination and laboratory evaluat ion. No hydronephrosis is grossly evident. 2. Small bilateral pleural effusions and pericardial effusion. 3. Small hiatal hernia. 4. Findings of prior granulomatous disease. 5. Other chronic findings as above. POS: [facility]
[2017-09-13] MEDS: Enoxaparin Sodium 40 MG/0.4 ML SYRINGE SC SCH (20:30)
--- NOTE | 2017-09-13 21:43 | PRG ---
DATE OF SERVICE: 09/13/2017 SUBJECTIVE: Ms. Chacha Kurtz is doing well today. She underwent incision and drainage of a diabe tic foot infection (newly diagnosed diabetic) yesterday. Two days ago, wound VAC was applied. Cultu res revealed Enterococcus and Streptococcus on more recent culture and some yeast species on previous culture. The patient's wound VAC was changed today. Her cellulitis dorsally is resolved. The woun d looks good, dorsally. Plantar the wound looks very good, granulating. Wound VAC was reapplied. T he patient complains of nausea, vomiting and central abdominal pain. She has had episodic upper and central abdominal pain, nausea and vomiting as well as right flank pain for several weeks. She has u [facility] upper and lower endoscopy that were normal. She has had a gallbladder ultrasound in [place] that was normal. Abdomen is soft with mild tenderness in right upper quadrant, central abdomen, but no guarding or rebound. The patient has a long history of diarrhea. She has been having loose stoo ls. This has been a problem for her for sometime. OBJECTIVE: LUNGS: Clear to auscultation. CARDIAC: Regular rate and rhythm without murmur or gallop. ABDOMEN: Soft. Mild tenderness in the right upper quadrant, central abdomen. No guarding or reboun d. EXTREMITIES: Unremarkable. LABORATORY DATA: White count is 9, hemoglobin 11.8. Sodium 139, potassium 3.0, BUN 27 and creatinin e 2.09. Accu-Cheks are 217 now. ASSESSMENT AND PLAN: 1. Diabetic infection foot. Continue wound VAC care. This should do well. 2. Newly diagnosed diabetes. Treatment per Hospitalist. 3. Persistent nausea, vomiting and GI dysfunction. We will obtain oral, but no IV contrast, CAT sca n of abdomen and pelvis. 4. Episodic right flank pain, epigastric pain. We will obtain a CT scan as noted above as well as a HIDA scan with an ejection fraction. Previous ultrasound, she reports was completely normal in [facility]. 5. Chronic kidney disease. BUN 27, creatinine 2.09 and glomerular filtration rate 23. Her renal fu nction was normal on 09/11/2017, but has recently deteriorated. Agree with IV fluid hydration. This may reflect dehydration secondary to gastrointestinal problem. We will check stool Clostridium diff icile.
[2017-09-14] MEDS: Sodium Chloride 0.9% 1,000 ML IV SCH ×4 (02:30→20:47)
[2017-09-14] MEDS: Ondansetron HCl/PF 4 MG/2 ML Vial IVP PRN (05:27)
[2017-09-14] MEDS: Piperacillin/Tazobactam 2.25 GM, Admixture Fee 1 EACH in Sodium Chloride 0.9% 100 ML IVPB SCH ×2 (05:27→15:18)
[2017-09-14 08:08] LABS: #Basophils 0.1 thou/uL (0.0-0.2); #Eosinphils 0.3 thou/uL (0.0-0.7); #Lymphocytes 1.4 thou/uL (1.20-3.40); #Monocytes 0.7 thou/uL (0.11-0.59); #Neutrophils 7.1 thou/uL (1.40-6.50); %Basophils 0.6 % (0.0-1.0); %Eosinophils 3.5 % (0.0-10.0); %Lymphocytes 14.3 % (21.0-51.0); Hematocrit 39.3 % (36.0-47.0); Red Blood Cell (RBC) Count 4.49 mill/uL (4.20-5.40); White Blood Cell (WBC) Count 9.5 thou/uL (4.8-10.8)
[2017-09-14 08:34] LABS: Anion Gap 14 mmol/L (10-20); BUN (Urea Nitrogen) 26 mg/dL (9.8-20.1); Calc. Creatinine Clearance 44 mL/min (70-130); Carbon Dioxide 21 mmol/L (22-29); Chloride 109 mmol/L (98-107); Estimated GFR-MDRD 25
--- NOTE | 2017-09-14 09:48 | PRG ---
DATE OF SERVICE: 09/14/2017 Chacha Kurtz is still having nausea and vomiting. She is passing stool, however. No stool cultures have been obtained. This morning her white count is 9, hemoglobin 13. Her potassium 2.9, BUN stable at 26 and 2.06. CAT scan yesterday without IV contrast, but with oral contrast reveals inflammatory changes around the r ight kidney. Urine cultures 09/10/2017, greater than 10 to the fifth mixed skin and enteric vincent. This was a emma an catch specimen. The patient is to have a HIDA scan today. She has had episodic nausea and gastro intestinal symptoms for several months. Previous ultrasound in [place] was negative. Upper and lowe r endoscopy in [place] she reports as negative recently. ASSESSMENT AND PLAN: Persistent nausea and vomiting, and a newly diagnosed diabetic possibly gastrop aresis. We will await HIDA scan ejection fraction and rule out biliary dysfunction. From a foot inf ection standpoint, the patient is ready to be discharged home with oral antibiotics and outpatient wo und VAC. She can follow up in my office in 2-[address] Pink will be covering over the weekend . Please call if needed. Otherwise, I will see her Sunday.
[2017-09-14] MEDS: Potassium Chloride 40 MEQ in Sodium Chloride 0.9% 500 ML IVPB SCH ×2 (13:45→22:39)
--- NOTE | 2017-09-14 14:08 | PDOC.PN ---
- Subjective Encounter Start Date: 09/14/17 Encounter Start Time: 14:07 Subjective: still has vomiting and diarrhea.no abdominal pain -: reports diarrhea for 2 years but vomitinng for 1 week only - Objective MAR Reviewed: Yes Vital Signs & Weight: Vital Signs (12 hours) Temp Pulse Resp BP Pulse Ox 09/14/17 08:00 98.3 F 56 L 18 151/88 H 97 Weight Admit Weight 197 lb Weight 197 lb I&O: 09/13/17 09/14/17 09/15/17 06:59 06:59 06:59 Intake Total 960 2350 Output Total 600 120 Balance 360 2230 Result Diagrams: 09/17/17 04:46 09/17/17 04:46 Additional Labs: Accuchecks 09/14/17 09/13/17 09/13/17 05:02 19:50 16:33 POC Glucose 123 H 209 H 166 H Microbiology 09/10/17 20:34 Urine clean catch Urine Culture - Final 09/11/17 12:17 Foot - Right Bacterial Culture - Preliminary 09/11/17 12:17 Foot - Right Anaerobic Culture - Preliminary Presumptive Enterococcus sp. Streptococcus agalactiae Gp. B 09/11/17 08:35 Foot - Pending Bacterial Culture - Preliminary Presumptive Enterococcus sp. Streptococcus agalactiae Gp. B Yeast species Yeast species#2 09/10/17 20:35 Venous blood - Right Arm Blood Culture - Preliminary NO GROWTH AT 48 HOURS 09/10/17 20:35 Venous blood - Left Arm Blood Culture - Preliminary NO GROWTH AT 48 HOURS Laboratory Tests 09/10/17 09/11/17 09/12/17 20:35 03:33 04:55 Potassium 3.0 L 3.4 L Creatinine 0.76 0.70 Hemoglobin A1c 12.7 H 09/13/17 09/14/17 07:06 07:56 Potassium 3.0 L 2.9 L* Creatinine 2.09 H 2.06 H Hemoglobin A1c Radiology Reviewed by me: Yes (CT A/P-no acute changes) Phys Exam - Physical Examination Constitutional: NAD HEENT: PERRLA, moist MMs, sclera anicteric, oral pharynx no lesions Neck: no nodes, no JVD, supple, full ROM Respiratory: no wheezing, no rales, no rhonchi, clear to auscultation bilateral Cardiovascular: RRR, no significant murmur Gastrointestinal: soft, non-tender, no distention, positive bowel sounds Musculoskeletal: no edema, pulses present Neurological: non-focal, normal sensation, moves all 4 limbs Psychiatric: normal affect, A&O x 3 Skin: no rash Dx/Plan (1) Sepsis Code(s): A41.9 - SEPSIS, UNSPECIFIED ORGANISM Status: Acute (2) Diabetic ulcer of right foot Code(s): E11.621 - TYPE 2 DIABETES MELLITUS WITH FOOT ULCER; L97.519 - NON-PRS CHRONIC ULCER OTH PRT RIGHT FOOT W UNSP SEVERITY Status: Acute Qualifiers: Diabetic foot ulcer location: midfoot Diabetes mellitus type: type 2 (3) Nausea & vomiting Code(s): R11.2 - NAUSEA WITH VOMITING, UNSPECIFIED Status: Acute Qualifiers: Vomiting type: unspecified (4) JONATHAN (acute kidney injury) Code(s): N17.9 - ACUTE KIDNEY FAILURE, UNSPECIFIED Status: Acute Comment: Likley due to dehydration from diarrhea Vs toradol (5) Hypokalemia Code(s): E87.6 - HYPOKALEMIA Status: Acute (6) Chronic anemia Code(s): D64.9 - ANEMIA, UNSPECIFIED Status: Chronic (7) DM type 2 (diabetes mellitus, type 2) Status: Acute Qualifiers: Diabetes mellitus complication status: with unspecified complications Diabetes mellitus care home insulin use: without care home use Qualified Code( s): E11.8 - Type 2 diabetes mellitus with unspecified complications Comment: new onset - Plan continue antibiotics, PT/OT, out of bed/ambulate, DVT proph w/SCDs Likley reason is daibetic gastroparesis with autonomic dysFx.also ? IBS -: Pt encouraged to talk to GI doctor in [place] again.EGD/Colon -ve as an OP -: will give trial of Reglan IV.cont Diet as tolerated. -: cont zosyn for healing pylonephritis.urine Cx -ve so far. -: ID consulted for ABx choice for ? UTI/PN & Diabetic wound.Cx noted * .Unclear if pt got GPC coverage or not. * Renal Fx improving.DC Toradol.Monitor. IVF. * replace and recheck Potassium. Mag WNL * am labs. * Hemodynamically stable. * HIDA scan done today.results pending. * Add Florastor Review of Systems - Review of Systems Constitutional: Weakness, Malaise. negative: Fever, Chills, Sweats, Other Respiratory: negative: Cough, Dry, Shortness of Breath, Hemoptysis, SOB with Excertion, Pleuritic Pain, Sputum, Wheezing Cardiovascular: negative: Chest Pain, Palpitations, Orthopnea, Paroxysmal Noc. Dyspnea, Edema, Light Headedness, Other Gastrointestinal: Nausea, Vomiting, Diarrhea Genitourinary: negative: Dysuria, Frequency, Incontinence, Hematuria, Retention , Other Musculoskeletal: negative: Neck Pain, Shoulder Pain, Arm Pain, Back Pain, Hand Pain, Leg Pain, Foot Pain, Other Neurological: negative: Weakness, Numbness, Incoordination, Change in Speech, Confusion, Seizures, Other - Medications/Allergies Allergies/Adverse Reactions: Allergies Allergy/AdvReac Type Severity Reaction Status Date / Time No Known Allergies Allergy Unverified 09/10/17 22:23 Medications: Current Medications Acetaminophen (Tylenol) 1,000 mg PO Q6H PRN PRN Reason: Moderate to Severe Pain (6-10) Dextrose/Water (Dextrose 50%) 25 gm IVP PRN PRN PRN Reason: HYPOGLYCEMIA PROTOCOL Enoxaparin Sodium (Lovenox) 40 mg SC 2100 [facility] Last Admin: 09/13/17 20:30 Dose: 40 mg Glipizide (Glucotrol) 5 mg PO DAILY-[facility] Glucagon (Glucagon) 1 mg IM PRN PRN PRN Reason: HYPOGLYCEMIA PROTOCOL Dextrose/Water (D5w) 1,000 mls @ 0 mls/hr IV INF PRN; As Directed PRN Reason: HYPOGLYCEMIA PROTOCOL Insulin Detemir 10 units/ (Miscellaneous Medication) 0.1 mls @ 0 mls/hr SC BID [facility] Last Admin: 09/13/17 20:31 Dose: 0.1 mls Sodium Chloride (Normal Saline 0.9%) 1,000 mls @ 125 mls/hr IV .Q8H [facility] Last Admin: 09/14/17 05:22 Dose: 1,000 mls Piperacillin Sod/Tazobactam Sod 2.25 gm/ Miscellaneous Medication 1 each/ Sodium Chloride 100 mls @ 200 mls/hr IVPB Q8HR [facility] Last Admin: 09/14/17 05:27 Dose: 100 mls Potassium Chloride 40 meq/ (Sodium Chloride) 520 mls @ 130 mls/hr IVPB Q4H [facility] Stop: 09/14/17 19:29 Last Admin: 09/14/17 13:45 Dose: 520 mls Insulin Human Regular (Humulin R) 0 units SC .MODERATE SLIDING SC PRN; Protocol PRN Reason: MODERATE SLIDING SCALE Last Admin: 09/13/17 18:04 Dose: 2 unit Insulin Human Regular (Humulin R) 0 units SC .BEDTIME SLIDING SC PRN; Protocol PRN Reason: BEDTIME SLIDING SCALE Metoclopramide HCl (Reglan) 10 mg IVP Q6H PRN PRN Reason: Nausea/Vomiting Morphine Sulfate/Sodium Chloride (Morphine 0.9% Nacl Pf 2 Mg/2ml) 2 mg SLOW IVP Q4H PRN PRN Reason: Severe Pain (7-10) Ondansetron HCl (Zofran) 4 mg IVP Q6H PRN PRN Reason: Nausea/Vomiting Last Admin: 09/14/17 05:27 Dose: 4 mg Ondansetron HCl (Zofran Odt) 4 mg PO Q6H PRN PRN Reason: Nausea/Vomiting Polyethylene Glycol (Miralax) 17 gm PO DAILY [facility] Last Admin: 09/13/17 09:01 Dose: Not Given Saccharomyces Boulardii (Florastor) 250 mg PO 1400 [facility] Sodium Chloride (Flush - Normal Saline) 10 ml IVF Q12HR [facility] Last Admin: 09/13/17 20:32 Dose: Not Given Sodium Chloride (Flush - Normal Saline) 10 ml IVF PRN PRN PRN Reason: Saline Flush Tramadol HCl (Ultram) 50 mg PO Q6H PRN PRN Reason: Mild-Moderate Pain (1-5) Tramadol HCl (Ultram) 100 mg PO Q6H PRN PRN Reason: Moderate to Severe Pain (6-10)
--- NOTE | 2017-09-14 14:44 | CON ---
DATE OF CONSULTATION: 09/14/2017 REASON FOR CONSULTATION: Right foot inflammatory process. HISTORY OF PRESENT ILLNESS: A 56-year-old with undiagnosed diabetes mellitus type 2, neuropathy, and puncture injury to the right foot through the shoes while [place] The patient recalls that the object was a thorn from mesquite tree. This happened approximately 2-1/2 to 3 weeks prior to the admission. The patient developed an infl ammatory process at the site and initial medical evaluation occurred about a week after the event and patient was given levofloxacin without improvement and she noticed some purulent drainage. The son proceeded to use a needle to drain this area of drainage which appeared to have been an abscess with persistence of symptoms and then worsening of the inflammatory process. The patient was then admitte d and initial x-ray showed soft tissue changes, but no bony abnormalities. Patient underwent surgica l debridement. Procedure was evaluated. A small incision made longitudinally between second and thi rd metatarsals, and third and fourth toes. The wound was left open and irrigated. In the plantar as pect of the foot, there was a penetrating wound undermining circumferentially to the base of the toes proximally. There was some necrotic area of underlying soft tissues. Currently, patient is having problems with recurrent episodes of vomiting. According to her, this phenomenon has occurred for the past 2 years and has undergone evaluation previously elsewhere with upper and lower endoscopies whic h were reportedly normal. She has had some evaluation here as well and is still undergoing evaluatio n for that. No headaches. No visual symptoms, sore throat, odynophagia, or dysphagia. No dyspnea, no cough or chest pain, no back pain, no genitourinary symptoms. No joint symptoms. PAST MEDICAL HISTORY: Undiagnosed type 2 diabetes mellitus, neuropathy, chronic recurrent episodes o f nausea and vomiting without defined etiology at this time. PAST SURGICAL HISTORY: Hysterectomy. 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 No smoking. No alcoholic beverage use. FAMILY HISTORY: Coronary artery disease. CURRENT MEDICATIONS: Enoxaparin, insulin, Reglan, and Zosyn. PHYSICAL EXAMINATION: VITAL SIGNS: T-max 98.6, blood pressure 150/88, pulse is 56-69, respiratory rate 18, O2 sat 97%. GENERAL: The patient appears in no distress, oriented. SKIN: Shows negative pressure dressing in the plantar aspect of the right foot. There is area of er ythema extending to the base of fourth toe. There is a little bit of yellow discoloration at the bas e suggestive of purulent collection. Peripheral IV access. No Rose catheter. No lymphadenopathy. HEENT: Ocular movements are conjugate. Oral cavity with only a few remaining teeth with marked deca y. Oral mucosa normal. NECK: Supple, no jugular venous distention or carotid bruits, no thyromegaly. LUNGS: With symmetric clear breath sounds. Ethel impulse normal. HEART: S1 and S2 without murmurs. No S3 or S4. ABDOMEN: Soft, not distended or tender. No ascites. No bladder distention, no organomegaly. EXTREMITIES: No joint inflammatory activity outside the involved area. Pulses are 2+ in popliteal a nd 2+ in dorsalis pedis. Cap refill normal. LABORATORY DATA: Sodium 136, creatinine 0.76, bilirubin 2.2 and 1.0. Transaminases normal, albumin 2.8, blood glucose 233-166, creatinine is up to 2.06, potassium 2.9, sodium 141. Urinalysis with 21- 50 wbc's and protein of 30. Microbiology with Enterococcus group B Strep anginosus and Natalia albic ans. ASSESSMENT: 1. Undiagnosed type 2 diabetes mellitus with neuropathy. 2. Puncture injury to the right foot through shoes from a mesquite tree thorn about 3 weeks before a dmission. 3. Inflammatory process with abscess and areas of necrosis and possible deeper involvement considere d including the possibility of osteomyelitis and septic arthritis. 4. Recurrent nausea and vomiting with prior workup for the past 2 years without precise diagnosis of etiology. Possibility of gastroparesis is considered. DISCUSSION: Patient will undergo an MRI of the right foot without contrast in view of the GFR decrea sed to evaluate for deeper involvement of the bone and joint structures as well as possibility of ten osynovitis. We will transition patient to Unasyn, adjusted for renal function and oral Diflucan. De finition of outpatient antimicrobial therapy after the results of the MRI scan. If there is no deepe r involvement, then Augmentin and Diflucan. If there is, then we will have to consider PICC line jasson cement and protracted IV antimicrobial therapy.
[2017-09-14] MEDS: glipiZIDE 5 MG TAB PO SCH (14:46)
[2017-09-14] MEDS: Insulin Detemir 100 UNITS/ML 10 UNITS in Pre-Filled Syringe 1 EACH SC SCH ×2 (14:46→22:49)
[2017-09-14] MEDS: Polyethylene Glycol 3350 17 GM Packet PO SCH (14:47)
[2017-09-14] MEDS: Metoclopramide HCl 10 MG/2 ML VIAL IVP PRN (14:49)
[2017-09-14] MEDS: Saccharomyces boulardii 250 MG CAP PO SCH (14:56)
--- NOTE | 2017-09-14 15:30 | PRG ---
DATE OF SERVICE: 09/14/2017 Ms. Kurtz's HIDA scan ejection fraction was normal today. Her abdomen was benign. Most likely pro blem is a combination of gastroparesis and irritable bowel syndrome. Currently, patient's diabetic f oot infection is much improved after reviewing it earlier today. I believe that she can be discharge d home on oral antibiotics at any given time once her gastrointestinal problem is resolved. There ar e no other surgical problems, I would recommend she follow up in my office in 2-3 weeks. Continue or al antibiotics as an outpatient when she is able to take them. Dr. Pink is covering the weekend. Please call if necessary. I will sign off and see as needed.
--- NOTE | 2017-09-14 15:45 | NM ---
NUCLEAR MEDICINE HIDA SCAN: RADIOPHARMACEUTICAL: 5.5 mCi Technetium 99m mebrofenin IV. INDICATION: Episodic upper abdominal pain and right flank pain. FINDINGS: There is homogeneous radiotracer uptake of the hepatic parenchyma. Excretion of radiotracer into the gallbladder is seen prior to 20 minutes of imaging. There is bowel activity noted at less than 20 m inutes of imaging. Six ounces of protein supplementation was ingested by the patient. Subsequent gallbladder ejection f raction performed for 60 minutes. At the 60-minute time frame, estimated gallbladder ejection fracti on is 47%. IMPRESSION: 1. Visualization of the gallbladder excludes cystic duct obstruction. 2. Gallbladder ejection fraction approximates 50%, which is within normal limits. POS: [facility]
[2017-09-14] MEDS ORDERED: Ampicillin/Sulbactam 3 GM, Syringe 1.6 ML in Sterile Water 6.4 ML SLOW IVP SCH (16:00)
[2017-09-14] MEDS: Insulin Regular 300 UNITS/3 ML VIAL SC PRN (17:32)
[2017-09-14] MEDS: Enoxaparin Sodium 40 MG/0.4 ML SYRINGE SC SCH (20:38)
[2017-09-14] MEDS: Ampicillin/Sulbactam 3 GM, Syringe 1.6 ML in Sterile Water 6.4 ML SLOW IVP SCH (20:38)
[2017-09-14] MEDS ORDERED: Ampicillin/Sulbactam 3 GM VIAL IM SCH (21:00)
[2017-09-15] MEDS: Sodium Chloride 0.9% 1,000 ML IV SCH ×3 (06:17→15:49)
[2017-09-15] MEDS: Insulin Regular 300 UNITS/3 ML VIAL SC PRN (06:20)
[2017-09-15] MEDS: Ampicillin/Sulbactam 3 GM, Syringe 1.6 ML in Sterile Water 6.4 ML SLOW IVP SCH ×2 (08:44→20:58)
[2017-09-15] MEDS: Metoclopramide HCl 10 MG/2 ML VIAL IVP PRN ×2 (08:51→15:53)
[2017-09-15] MEDS: Polyethylene Glycol 3350 17 GM Packet PO SCH (08:53)
[2017-09-15] MEDS: Saccharomyces boulardii 250 MG CAP PO SCH (09:00)
[2017-09-15] MEDS: glipiZIDE 5 MG TAB PO SCH (09:40)
[2017-09-15] MEDS: Insulin Detemir 100 UNITS/ML 10 UNITS in Pre-Filled Syringe 1 EACH SC SCH ×2 (09:41→20:20)
[2017-09-15 10:01] LABS: Anion Gap 14 mmol/L (10-20); BUN (Urea Nitrogen) 25 mg/dL (9.8-20.1); Calc. Creatinine Clearance 53 mL/min (70-130); Calcium 8.4 mg/dL (7.8-10.44); Carbon Dioxide 17 mmol/L (22-29); Chloride 114 mmol/L (98-107); Estimated GFR-MDRD 31
[2017-09-15] MEDS: Morphine 2 mg/2ml in 0.9% NaCl PF SYRINGE SLOW IVP PRN (13:54)
--- NOTE | 2017-09-15 14:46 | MRI ---
MRI OF THE RIGHT FOOT NONCONTRAST: Date: 09/15/17 Contrast not administered due to diminished renal function. CLINICAL HISTORY: Soft tissue infection related to prior penetrating injury. FINDINGS: There is abnormal soft tissue edema involving the plantar aspect of the mid to distal foot with focal skin defect of the plantar aspect of the foot involving the central to lateral aspect underlying the third and fourth digits. No obvious marrow edema. No drainable fluid collection of the soft tissues. IMPRESSION: Evidence of cellulitis. No drainable abscess or focal area of osteomyelitis evident. POS: [facility]
--- NOTE | 2017-09-15 15:44 | PDOC.PN ---
- Subjective Encounter Start Date: 09/15/17 Encounter Start Time: 15:43 Subjective: feels better. vomited once today,more of dry heave.stools loose -: no abdominal pain.no fever - Objective MAR Reviewed: Yes Vital Signs & Weight: Vital Signs (12 hours) Temp Pulse Resp BP BP Pulse Ox 09/15/17 12:27 97.9 F 62 16 145/74 H 98 09/15/17 08:00 98.5 F 68 16 93 L 09/15/17 07:25 98.5 F 68 16 117/77 93 L 09/15/17 04:15 65 18 119/79 97 Weight Admit Weight 197 lb Weight 197 lb I&O: 09/14/17 09/15/17 09/16/17 06:59 06:59 06:59 Intake Total 2350 1920 Output Total 120 Balance 2230 1920 Result Diagrams: 09/17/17 04:46 09/17/17 04:46 Additional Labs: Accuchecks 09/15/17 09/15/17 09/14/17 12:22 04:28 22:49 POC Glucose 150 H 176 H 253 H 09/14/17 16:32 POC Glucose 228 H Microbiology 09/10/17 20:34 Urine clean catch Urine Culture - Final 09/11/17 12:17 Foot - Right Bacterial Culture - Preliminary 09/11/17 12:17 Foot - Right Anaerobic Culture - Preliminary Enterococcus species Streptococcus agalactiae Gp. B Streptococcus anginosus Group Presumptive Natalia albicans 09/11/17 08:35 Foot - Pending Bacterial Culture - Preliminary Enterococcus species Streptococcus agalactiae Gp. B Yeast species Yeast species#2 09/10/17 20:35 Venous blood - Right Arm Blood Culture - Preliminary NO GROWTH AT 48 HOURS 09/10/17 20:35 Venous blood - Left Arm Blood Culture - Preliminary NO GROWTH AT 48 HOURS Laboratory Tests 09/10/17 09/11/17 09/13/17 20:35 03:33 07:06 Creatinine 0.76 0.70 2.09 H 09/14/17 09/15/17 07:56 09:32 Creatinine 2.06 H 1.70 H Radiology Reviewed by me: Yes (MRI leg-no osteomyelitis) Phys Exam - Physical Examination Constitutional: NAD HEENT: PERRLA, moist MMs, sclera anicteric, oral pharynx no lesions Neck: no nodes, no JVD, supple, full ROM Respiratory: no wheezing, no rales, no rhonchi, clear to auscultation bilateral Cardiovascular: RRR, no significant murmur Gastrointestinal: soft, non-tender, no distention, positive bowel sounds Musculoskeletal: no edema, pulses present Neurological: non-focal, normal sensation, moves all 4 limbs Psychiatric: normal affect, A&O x 3 Skin: no rash Dx/Plan (1) Diabetic ulcer of right foot Code(s): E11.621 - TYPE 2 DIABETES MELLITUS WITH FOOT ULCER; L97.519 - NON-PRS CHRONIC ULCER OTH PRT RIGHT FOOT W UNSP SEVERITY Status: Acute Qualifiers: Diabetic foot ulcer location: midfoot Diabetes mellitus type: type 2 (2) Nausea & vomiting Code(s): R11.2 - NAUSEA WITH VOMITING, UNSPECIFIED Status: Acute Qualifiers: Vomiting type: unspecified (3) JONATHAN (acute kidney injury) Code(s): N17.9 - ACUTE KIDNEY FAILURE, UNSPECIFIED Status: Acute Comment: Likley due to dehydration from diarrhea Vs toradol (4) Hypokalemia Code(s): E87.6 - HYPOKALEMIA Status: Acute (5) Chronic anemia Code(s): D64.9 - ANEMIA, UNSPECIFIED Status: Chronic (6) DM type 2 (diabetes mellitus, type 2) Status: Acute Qualifiers: Diabetes mellitus complication status: with unspecified complications Diabetes mellitus mcfp insulin use: without long term care pharmacist use Qualified Code( s): E11.8 - Type 2 diabetes mellitus with unspecified complications Comment: new onset (7) Sepsis Code(s): A41.9 - SEPSIS, UNSPECIFIED ORGANISM Status: Acute - Plan continue antibiotics, PT/OT, out of bed/ambulate, DVT proph w/SCDs MRI -ve for osteomyelitis. can DC home on PO ABx w op GS,ID f/u. -: renal function improving. -: reglan given once w improved symptom.will schedule at least BID -: OP gastric emptying.will refer back to her GI. -: hemodynmiaclly stable.Home in enxt 24 hours * . Review of Systems - Review of Systems Constitutional: negative: Fever, Chills, Sweats, Weakness, Malaise, Other ENT: negative: Ear Pain, Ear Discharge, Nose Pain, Nose Discharge, Nose Congestion, Mouth Pain, Mouth Swelling, Throat Pain, Throat Swelling, Other Respiratory: negative: Cough, Dry, Shortness of Breath, Hemoptysis, SOB with Excertion, Pleuritic Pain, Sputum, Wheezing Cardiovascular: negative: Chest Pain, Palpitations, Orthopnea, Paroxysmal Noc. Dyspnea, Edema, Light Headedness, Other Gastrointestinal: Diarrhea. negative: Nausea, Vomiting, Abdominal Pain, Constipation, Melena, Hematochezia, Other Genitourinary: negative: Dysuria, Frequency, Incontinence, Hematuria, Retention , Other Musculoskeletal: negative: Neck Pain, Shoulder Pain, Arm Pain, Back Pain, Hand Pain, Leg Pain, Foot Pain, Other Neurological: negative: Weakness, Numbness, Incoordination, Change in Speech, Confusion, Seizures, Other - Medications/Allergies Allergies/Adverse Reactions: Allergies Allergy/AdvReac Type Severity Reaction Status Date / Time No Known Allergies Allergy Unverified 09/10/17 22:23 Medications: Current Medications Acetaminophen (Tylenol) 1,000 mg PO Q6H PRN PRN Reason: Moderate to Severe Pain (6-10) Dextrose/Water (Dextrose 50%) 25 gm IVP PRN PRN PRN Reason: HYPOGLYCEMIA PROTOCOL Enoxaparin Sodium (Lovenox) 40 mg SC 2100 [facility] Last Admin: 09/14/17 20:38 Dose: 40 mg Fluconazole (Diflucan) 200 mg PO DAILY [facility] Glipizide (Glucotrol) 5 mg PO DAILY-AC [facility] Last Admin: 09/15/17 09:40 Dose: Not Given Glucagon (Glucagon) 1 mg IM PRN PRN PRN Reason: HYPOGLYCEMIA PROTOCOL Dextrose/Water (D5w) 1,000 mls @ 0 mls/hr IV INF PRN; As Directed PRN Reason: HYPOGLYCEMIA PROTOCOL Insulin Detemir 10 units/ (Miscellaneous Medication) 0.1 mls @ 0 mls/hr SC BID [facility] Last Admin: 09/15/17 09:41 Dose: Not Given Sodium Chloride (Normal Saline 0.9%) 1,000 mls @ 125 mls/hr IV .Q8H [facility] Last Admin: 09/15/17 10:13 Dose: 1,000 mls Ampicillin Sodium/Sulbactam Sodium 3 gm/ Syringe 1.6 ml/Sterile Water 8 mls @ 32 mls/hr SLOW IVP 0800,2000 [facility] Last Admin: 09/15/17 08:44 Dose: 8 mls Insulin Human Regular (Humulin R) 0 units SC .MODERATE SLIDING SC PRN; Protocol PRN Reason: MODERATE SLIDING SCALE Last Admin: 09/15/17 06:20 Dose: 2 unit Insulin Human Regular (Humulin R) 0 units SC .BEDTIME SLIDING SC PRN; Protocol PRN Reason: BEDTIME SLIDING SCALE Last Admin: 09/14/17 22:50 Dose: 3 unit Metoclopramide HCl (Reglan) 10 mg IVP Q6H PRN PRN Reason: Nausea/Vomiting Last Admin: 09/15/17 08:51 Dose: 10 mg Morphine Sulfate/Sodium Chloride (Morphine 0.9% Nacl Pf 2 Mg/2ml) 2 mg SLOW IVP Q4H PRN PRN Reason: Severe Pain (7-10) Last Admin: 09/15/17 13:54 Dose: 2 mg Ondansetron HCl (Zofran) 4 mg IVP Q6H PRN PRN Reason: Nausea/Vomiting Last Admin: 09/14/17 05:27 Dose: 4 mg Ondansetron HCl (Zofran Odt) 4 mg PO Q6H PRN PRN Reason: Nausea/Vomiting Polyethylene Glycol (Miralax) 17 gm PO DAILY [facility] Last Admin: 09/15/17 08:53 Dose: Not Given Saccharomyces Boulardii (Florastor) 250 mg PO 1400 [facility] Last Admin: 09/14/17 14:56 Dose: 250 mg Sodium Chloride (Flush - Normal Saline) 10 ml IVF Q12HR [facility] Last Admin: 09/15/17 08:53 Dose: 10 ml Sodium Chloride (Flush - Normal Saline) 10 ml IVF PRN PRN PRN Reason: Saline Flush Tramadol HCl (Ultram) 50 mg PO Q6H PRN PRN Reason: Mild-Moderate Pain (1-5) Tramadol HCl (Ultram) 100 mg PO Q6H PRN PRN Reason: Moderate to Severe Pain (6-10)
[2017-09-15] MEDS: Fluconazole 100 MG TAB PO SCH (15:49)
[2017-09-15] MEDS: Enoxaparin Sodium 40 MG/0.4 ML SYRINGE SC SCH (20:22)
[2017-09-16] MEDS: Sodium Chloride 0.9% 1,000 ML IV SCH ×3 (01:15→23:36)
[2017-09-16 06:18] LABS: Anion Gap 13 mmol/L (10-20); BUN (Urea Nitrogen) 21 mg/dL (9.8-20.1); Calc. Creatinine Clearance 56 mL/min (70-130); Carbon Dioxide 16 mmol/L (22-29); Chloride 113 mmol/L (98-107); Estimated GFR-MDRD 34
[2017-09-16 06:19] LABS: Calcium 8.2 mg/dL (7.8-10.44)
[2017-09-16] MEDS ORDERED: Potassium Chloride 40 MEQ, Admixture Fee 1 EACH in Sodium Chloride 0.9% 250 ML 250 ML IVPB SCH (08:15)
[2017-09-16] MEDS ORDERED: Potassium Chloride 40 MEQ in Premix Bag 1 BAG IVPB SCH (08:15)
[2017-09-16] MEDS: Metoclopramide HCl 10 MG/2 ML VIAL IVP PRN (08:20)
[2017-09-16] MEDS: glipiZIDE 5 MG TAB PO SCH (09:23)
[2017-09-16] MEDS: Polyethylene Glycol 3350 17 GM Packet PO SCH (09:23)
[2017-09-16] MEDS: Ampicillin/Sulbactam 3 GM, Syringe 1.6 ML in Sterile Water 6.4 ML SLOW IVP SCH ×2 (09:27→19:48)
[2017-09-16] MEDS: Insulin Detemir 100 UNITS/ML 10 UNITS in Pre-Filled Syringe 1 EACH SC SCH ×2 (09:37→20:01)
--- NOTE | 2017-09-16 13:33 | PDOC.PN ---
- Subjective Encounter Start Date: 09/16/17 Encounter Start Time: 13:31 Subjective: pt feels much better.nausea w dry heaves. no vomiting of food -: loose stools - Objective MAR Reviewed: Yes Vital Signs & Weight: Vital Signs (12 hours) Temp Pulse Resp BP Pulse Ox 09/16/17 08:00 98.6 F 59 L 18 95 09/16/17 07:54 98.6 F 59 L 18 145/80 H 95 Weight Admit Weight 197 lb Weight 197 lb I&O: 09/15/17 09/16/17 09/17/17 06:59 06:59 06:59 Intake Total 1919 Balance 1919 Result Diagrams: 09/17/17 04:46 09/17/17 04:46 Additional Labs: Accuchecks 09/16/17 09/16/17 09/15/17 11:02 05:34 21:12 POC Glucose 219 H 181 H 220 H 09/15/17 16:29 POC Glucose 137 H Laboratory Tests 09/10/17 09/11/17 09/13/17 20:35 03:33 07:06 Creatinine 0.76 0.70 2.09 H 09/14/17 09/15/17 09/16/17 07:56 09:32 04:34 Creatinine 2.06 H 1.70 H 1.59 H Phys Exam - Physical Examination Constitutional: NAD HEENT: PERRLA, moist MMs, sclera anicteric, oral pharynx no lesions Neck: no nodes, no JVD, supple, full ROM Respiratory: no wheezing, no rales, no rhonchi, clear to auscultation bilateral Cardiovascular: RRR, no significant murmur Gastrointestinal: soft, non-tender, no distention, positive bowel sounds Musculoskeletal: no edema, pulses present wound vac in place R foot Neurological: non-focal, normal sensation, moves all 4 limbs Dx/Plan (1) Sepsis Code(s): A41.9 - SEPSIS, UNSPECIFIED ORGANISM Status: Acute (2) Diabetic ulcer of right foot Code(s): E11.621 - TYPE 2 DIABETES MELLITUS WITH FOOT ULCER; L97.519 - NON-PRS CHRONIC ULCER OTH PRT RIGHT FOOT W UNSP SEVERITY Status: Acute Qualifiers: Diabetic foot ulcer location: midfoot Diabetes mellitus type: type 2 (3) Nausea & vomiting Code(s): R11.2 - NAUSEA WITH VOMITING, UNSPECIFIED Status: Acute Qualifiers: Vomiting type: unspecified (4) JONATHAN (acute kidney injury) Code(s): N17.9 - ACUTE KIDNEY FAILURE, UNSPECIFIED Status: Acute Comment: Likley due to dehydration from diarrhea Vs toradol (5) Hypokalemia Code(s): E87.6 - HYPOKALEMIA Status: Acute (6) Chronic anemia Code(s): D64.9 - ANEMIA, UNSPECIFIED Status: Chronic (7) DM type 2 (diabetes mellitus, type 2) Status: Acute Qualifiers: Diabetes mellitus complication status: with unspecified complications Diabetes mellitus longterm insulin use: without longterm use Qualified Code( s): E11.8 - Type 2 diabetes mellitus with unspecified complications Comment: new onset - Plan continue antibiotics, respiratory therapy, incentive spirometry, out of bed/ ambulate, DVT proph w/SCDs Pt was discharged w HH earlier today but DC held -: wound care reported worsening wound site.may need more I/D -: will keep on IV ABx and reconsult . -: monitor renal Fx and Cont Reglan trial.PO Scheduled -: am labs * . Review of Systems - Review of Systems Constitutional: negative: Fever, Chills, Sweats, Weakness, Malaise, Other Respiratory: negative: Cough, Dry, Shortness of Breath, Hemoptysis, SOB with Excertion, Pleuritic Pain, Sputum, Wheezing Cardiovascular: negative: Chest Pain, Palpitations, Orthopnea, Paroxysmal Noc. Dyspnea, Edema, Light Headedness, Other Gastrointestinal: Nausea, Vomiting. negative: Abdominal Pain, Diarrhea, Constipation, Melena, Hematochezia, Other Genitourinary: negative: Dysuria, Frequency, Incontinence, Hematuria, Retention , Other Musculoskeletal: negative: Neck Pain, Shoulder Pain, Arm Pain, Back Pain, Hand Pain, Leg Pain, Foot Pain, Other Neurological: negative: Weakness, Numbness, Incoordination, Change in Speech, Confusion, Seizures, Other - Medications/Allergies Allergies/Adverse Reactions: Allergies Allergy/AdvReac Type Severity Reaction Status Date / Time No Known Allergies Allergy Unverified 09/10/17 22:23 Medications: Current Medications Acetaminophen (Tylenol) 1,000 mg PO Q6H PRN PRN Reason: Moderate to Severe Pain (6-10) Dextrose/Water (Dextrose 50%) 25 gm IVP PRN PRN PRN Reason: HYPOGLYCEMIA PROTOCOL Enoxaparin Sodium (Lovenox) [address] [facility] Last Admin: 09/15/17 20:22 Dose: 40 mg Fluconazole (Diflucan) [address] [facility] Last Admin: 09/15/17 15:49 Dose: 200 mg Glipizide (Glucotrol) 5 mg PO DAILY-[facility] Last Admin: 09/16/17 09:23 Dose: Not Given Glucagon (Glucagon) 1 mg IM PRN PRN PRN Reason: HYPOGLYCEMIA PROTOCOL Dextrose/Water (D5w) 1,000 mls @ 0 mls/hr IV INF PRN; As Directed PRN Reason: HYPOGLYCEMIA PROTOCOL Insulin Detemir 10 units/ (Miscellaneous Medication) 0.1 mls @ 0 mls/hr SC BID [facility] Last Admin: 09/16/17 09:37 Dose: Not Given Sodium Chloride (Normal Saline 0.9%) 1,000 mls @ 125 mls/hr IV .Q8H [facility] Last Admin: 09/16/17 09:35 Dose: 1,000 mls Ampicillin Sodium/Sulbactam Sodium 3 gm/ Syringe 1.6 ml/Sterile Water 8 mls @ 32 mls/hr SLOW IVP 0800,2000 [facility] Last Admin: 09/16/17 09:27 Dose: 8 mls Insulin Human Regular (Humulin R) 0 units SC .MODERATE SLIDING SC PRN; Protocol PRN Reason: MODERATE SLIDING SCALE Last Admin: 09/15/17 06:20 Dose: 2 unit Insulin Human Regular (Humulin R) 0 units SC .BEDTIME SLIDING SC PRN; Protocol PRN Reason: BEDTIME SLIDING SCALE Last Admin: 09/14/17 22:50 Dose: 3 unit Metoclopramide HCl (Reglan) 10 mg IVP Q6H PRN PRN Reason: Nausea/Vomiting Last Admin: 09/16/17 08:20 Dose: 10 mg Morphine Sulfate/Sodium Chloride (Morphine 0.9% Nacl Pf 2 Mg/2ml) 2 mg SLOW IVP Q4H PRN PRN Reason: Severe Pain (7-10) Last Admin: 09/15/17 13:54 Dose: 2 mg Ondansetron HCl (Zofran) 4 mg IVP Q6H PRN PRN Reason: Nausea/Vomiting Last Admin: 09/14/17 05:27 Dose: 4 mg Ondansetron HCl (Zofran Odt) 4 mg PO Q6H PRN PRN Reason: Nausea/Vomiting Polyethylene Glycol (Miralax) [address] [facility] Last Admin: 09/16/17 09:23 Dose: Not Given Saccharomyces Boulardii (Florastor) [address] [facility] Last Admin: 09/15/17 09:00 Dose: Not Given Sodium Chloride (Flush - Normal Saline) [address] [facility] Last Admin: 09/16/17 09:23 Dose: Not Given Sodium Chloride (Flush - Normal Saline) 10 ml IVF PRN PRN PRN Reason: Saline Flush Tramadol HCl (Ultram) 50 mg PO Q6H PRN PRN Reason: Mild-Moderate Pain (1-5) Tramadol HCl (Ultram) 100 mg PO Q6H PRN PRN Reason: Moderate to Severe Pain (6-10)
[2017-09-16] MEDS ORDERED: Ibuprofen 200 MG TAB PO PRN (14:00)
[2017-09-16] MEDS: Saccharomyces boulardii 250 MG CAP PO SCH (15:05)
--- NOTE | 2017-09-16 16:12 | PRG ---
DATE OF SERVICE: 09/16/2017 SUBJECTIVE: Feeling better. No headaches. No shortness of breath, no abdominal pain, no diarrhea. She has been afebrile. PHYSICAL EXAMINATION: VITAL SIGNS: Unremarkable. LUNGS: Clear. HEART: S1, S2, regular rate. ABDOMEN: Soft. EXTREMITIES: Right foot with dressing. LABORATORY DATA AND IMAGING: White cell count down to 9.5, hemoglobin 13, platelets 297, potassium 3 .1, and creatinine is at 1.59, which is better than previously. Microbiology with Enterococcus, 2 di fferent types of Streptococci and Natalia albicans as well as Peptostreptococcus asaccharolyticus. L [facility] extremity MRI showed cellulitis, but no abscess or osteomyelitis. ASSESSMENT AND DISCUSSION: Type 2 diabetes with puncture injury of right foot with polymicrobial pro cess, status post debridement. MRI did not show any evidence of deeper complicated process. At this time, consider switching to oral Augmentin plus Diflucan. Likely, gastroparesis with intermittent v omiting. May be an issue in terms of the hindrance towards the absorption of antimicrobials, but see ms like patient is able to take medications and that the vomiting is mostly related to meals. Durati on of therapy around approximately 10-14 days.
[2017-09-16] MEDS: Fluconazole 100 MG TAB PO SCH (16:56)
--- NOTE | 2017-09-16 17:48 | DIS ---
DATE OF ADMISSION: 09/10/2017 DATE OF DISCHARGE: 09/16/2017 CONDITION AT THE TIME OF DISCHARGE: Stable and improved. DISCHARGE DISPOSITION: Home with home health. DISCHARGE MEDICATIONS: Include, 1. Florastor 250 mg p.o. daily for 14 days. 2. Reglan 10 mg before meals 3 times a day as needed for nausea. 3. Diflucan 200 mg p.o. daily. 4. Augmentin 875 mg p.o. b.i.d. Both Diflucan and Augmentin are for 14 days. New medications also include Humulin 70/30, 20 units frias bcu b.i.d. and Lantus 15 units subcu b.i.d. PRIMARY CARE PHYSICIAN: Levar Leal MD. DISCHARGE DIAGNOSES: 1. Diabetic foot ulcer in the right foot, status post incision and drainage by General Surgery. 2. New diagnosis of diabetes mellitus. 3. Chronic nausea and diarrhea, possible irritable bowel syndrome versus diabetic gastroparesis. 4. Acute kidney insufficiency. 5. Hypokalemia. 6. Chronic anemia. CONSULTATIONS IN-HOUSE: Include, 1. General Surgery, Blayne Graham M.D. 2. Infectious Disease, Chan Orellana M.D. PROCEDURES DONE IN THE HOSPITAL: Include, 1. Incision and drainage of the right foot for diabetic foot infection on 09/11/2017 with wound VAC application. 2. CT scan of abdomen and pelvis on 09/13/2017 without IV contrast, which shows slight asymmetric hy pertrophy of the right kidney with mild perinephric stranding, reflecting the sequelae of the pyelone phritis. 3. HIDA scan, which is unremarkable. 4. Lower extremity MRI of the right foot, which is negative for any osteomyelitis. HISTORY OF PRESENTING ILLNESS: Ms. Kurtz is a pleasant 56-year-old female without any significant past medical history who presented to the emergency room with a foot infection in the right foot. e reported that she had stepped on a [place] thorn and has been having symptoms since last two weeks . They worsened despite oral antibiotics in the outpatient setting. She was admitted with a presump tive diagnosis of right foot cellulitis and abscess. IV antibiotics were initiated empirically and G eneral Surgery was consulted. Please see admission history and physical for further details. HOSPITAL COURSE: The patient was seen by Dr. Graham and she was taken for I and D, which was success ful with the placement of a wound VAC. Infectious Disease was also consulted for this reason and Dr. Orellana saw the patient and recommended an MRI. MRI was done and was negative for osteomyelitis and a s per his recommendations, her IV antibiotics were changed to oral antibiotics for discharge. Her la crobiology for the bacterial cultures grew Enterococcus species, Streptococcus agalactiae group B as well as Streptococcus anginosus group as well as Natalia. This is the reason she was discharged on D iflucan and Augmentin. Home health was set up for wound VAC. She was found to have new onset of diabetes with blood sugar at the time of presentation in the 300s. Her hemoglobin A1c was checked and was found to be elevated at 12.7. Both of her parents are diabe tic. She was started on insulin sliding scale in the hospital and was discharged on insulin as well. She gave history of persistent nausea and vomiting on and off with persistent diarrhea for about 2 ye ars. She has undergone an EGD as an outpatient and has a clerk supervisor. She underwent a CT sca n of the abdomen and pelvis and HIDA scan with regards to this, which both were unremarkable. She wa s given a trial of Reglan with some improvement, making diabetic gastroparesis a possible diagnosis. At this time, she will be discharged on oral Reglan trial and I have encouraged her to go back to [facility] clerk supervisor for continued workup including a gastric emptying study as an outpatient. Irrit able bowel syndrome is another possibility. The patient had some hypokalemia and acute renal insufficiency, which were managed with supplemental potassium as well as IV fluids. Her kidney function has much improved. She will continue to monitor it in the outpatient setting and get a BMP checked in 3 days with followup with the primary care deirdre spring. She has been encouraged to increase her oral fluid intake and she verbalized understanding. On the day of discharge, she has been cleared by General Surgery and home health setup has been [facility]. She is hemodynamically stable and will be discharged home. Her nausea, vomiting and diarrhea h ave much improved. She was seen and examined prior to discharge. PHYSICAL EXAMINATION: VITAL SIGNS: Temperature 98.6, pulse anywhere from 59-62, respirations 18, saturating 95% on room ai r, blood pressure 145/80. GENERAL: No acute distress, awake, alert and oriented x3. She is eating breakfast in bed at this ti me. LUNGS: Chest is clear to auscultation bilaterally. HEART: Rate and rhythm are regular without any murmurs. LABORATORY DATA: Her urine culture and blood cultures have remained negative. Wound culture results as per above. She will follow with primary care physician as well as General Surgery as an outpatient. Discharge plan was discussed with the patient who verbalized understanding. Total time spent in the discharge of this patient, 33 minutes including [id number] interaction.
[2017-09-16] MEDS: Enoxaparin Sodium 40 MG/0.4 ML SYRINGE SC SCH (20:01)
[2017-09-17 05:39] LABS: #Basophils 0.1 thou/uL (0.0-0.2); #Eosinphils 0.2 thou/uL (0.0-0.7); #Lymphocytes 1.4 thou/uL (1.20-3.40); #Monocytes 0.6 thou/uL (0.11-0.59); #Neutrophils 5.9 thou/uL (1.40-6.50); %Basophils 0.6 % (0.0-1.0); %Eosinophils 2.1 % (0.0-10.0); %Lymphocytes 17.5 % (21.0-51.0); %Monocytes 7.1 % (0.0-10.0); Mean Platelet Volume 8.7 fL (7.4-10.4); Red Blood Cell (RBC) Count 4.13 mill/uL (4.20-5.40); White Blood Cell (WBC) Count 8.2 thou/uL (4.8-10.8)
[2017-09-17] MEDS: Sodium Chloride 0.9% 1,000 ML IV SCH ×3 (05:56→20:38)
[2017-09-17 06:10] LABS: Anion Gap 14 mmol/L (10-20); Carbon Dioxide 16 mmol/L (22-29); Chloride 114 mmol/L (98-107)
[2017-09-17 06:17] LABS: BUN (Urea Nitrogen) 19 mg/dL (9.8-20.1); Calc. Creatinine Clearance 59 mL/min (70-130); Calcium 8.4 mg/dL (7.8-10.44); Estimated GFR-MDRD 35
[2017-09-17] MEDS: Ampicillin/Sulbactam 3 GM, Syringe 1.6 ML in Sterile Water 6.4 ML SLOW IVP SCH ×2 (08:19→20:06)
[2017-09-17] MEDS: Morphine 2 mg/2ml in 0.9% NaCl PF SYRINGE SLOW IVP PRN (09:23)
--- NOTE | 2017-09-17 10:16 | PRG ---
DATE OF SERVICE: 09/17/2017 SUBJECTIVE: Chacha Kurtz is seen today at the request Wound Care. She last week had an incision and drainage of a deep abscess plantar forefoot. The patient at that time refused amputation of any toe s if indicated. Radiologically plain x-rays did not show any bony abnormalities. MRI scan obtained by Dr. Orellana did not show any findings. I was asked by Wound Care to look at the wound again today. This morning, Sunday, the foot overall looks good. The dorsal small superficial wound is healing. The plantar wound and the forefoot demonstrates undermining with necrotic tissue. I cannot debride this at bedside as it is too painful. Cultures revealed Enterococcus, Streptococcus agalactiae and a nginosus and Natalia albicans. Dr. Orellana has seen her and ordered oral antibiotics. The patient's i ntolerance to liquids and food continues with nausea and vomiting, this has been ongoing for a week. She had problems intermittently as an outpatient and saw Dr. Ken in [place] and had an upper and lower endoscopy in the last few weeks. She had an ultrasound in [place] that was normal. She h ad a HIDA scan at this facility that was normal. She had a CAT scan noncontrast abdomen and pelvis r evealing changes of pyelonephritis. Urine cultures 09/10/2017 revealed greater than 10:5th mixed ski n, enteric vincent. The patient's acute kidney injury has improved. BUN has normalized to 19, creatin ine has improved to 1.53, GFR 35. ASSESSMENT AND PLAN: 1. Necrotic tissue, right foot. Would recommend further debridement; however, the patient refused a ny sort of amputation of her second or third toes if indicated. It is likely this infection goes shaji p into the joint or involves the tendon and further debridement is adjacent to these structures and m ay require amputation of the second and/or third toes. The patient, however, refused amputation. I do not see any point in taking her to the operating room for debridement without this as I have debri ded the soft tissue as much as possible and remaining necrotic tissue and is very deep and likely fur ther debridement would require amputation which the patient refuses. I would continue the wound VAC and antibiotics at this point. 2. Probable gastroparesis. We will ask Gastroenterology to see her for any other suggestions. Oral Reglan could be tried. This may be better than parenteral Reglan. I do not see any point in repeat ing her ultrasound of her gallbladder at this point, it was reportedly normal in [place], although I have not seen the results. HIDA scan ejection fraction was normal. Her right upper quadrant pain, r ight flank pain is likely related to her right pyelonephritis seen radiologically on CAT scan. We wi ll ask Gastroenterology to see her if they wanted to repeat her gallbladder ultrasound, this can be d one.
[2017-09-17] MEDS: glipiZIDE 5 MG TAB PO SCH (11:04)
[2017-09-17] MEDS: Insulin Detemir 100 UNITS/ML 10 UNITS in Pre-Filled Syringe 1 EACH SC SCH ×2 (11:04→20:34)
[2017-09-17] MEDS: Polyethylene Glycol 3350 17 GM Packet PO SCH (11:04)
[2017-09-17] MEDS ORDERED: Metoclopramide HCl 10 MG/2 ML VIAL IVP SCH (11:30)
--- NOTE | 2017-09-17 12:14 | PQF ---
CLINICAL DOCUMENTATION IMPROVEMENT CLARIFICATION FORM: ICD-10 Updated PLEASE DO AN ADDENDUM TO THE PROGRESS NOTE WITH ANY DOCUMENTATION UPDATES OR ADDITIONS AND CARRY THROUGH TO DC SUMMARY. THANK YOU. DATE: 09/17 ATTN: DR. CATY FUNG Please exercise your independent, professional judgment in responding to the clarification form. Clinical indicators are provided on the bottom of this form for your review Please check appropriate box(s) to clarify if the following diagnosis has been ruled in our ruled out: SEPSIS, UNSPECIFIED ORGANISM, ACUTE [ ] Ruled in diagnosis [x ] Continue to treat [ ] Resolved [ ] Ruled out diagnosis [ ] Other diagnosis [ ] Unable to determine In addition, please specify: Present on Admission (POA): [ x ] Yes [ ] No [ ] Unable to determine For continuity of documentation, please document condition throughout progress notes and discharge summary. Thank You. CLINICAL INDICATORS - SIGNS / SYMPTOMS / LABS ER PRESENTATION 09/10: T: 100.1 RR: 14-32 HR: 69-105 BP: 97/35 - 128 /72 WBC: 16.2 LACTIC ACID: 2.4 CELLULITIS RLE PHYSICIAN H&P DOCUMENTATION 09/10: ASSMT/PLAN: 1. R FOOT CELLULITIS PLUS ABSCESS; 2. SEPSIS PHYSICIAN PN DATED 09/11, - 09/13: DX/PLAN: 6. SEPSIS, UNSPECIFIED ORGANISM, ACUTE NO FURTHER MENTION OF SEPSIS TO DATE RISK FACTORS: UNDIAGNOSED DM II R FOOT SEVERE DIABETIC INFECTION TREATMENTS: INFECTIOUS DX CONSULT GEN SX CONSULT EXCISIONAL DEBRIDEMENT OF NECROTIC UNDERMINING TISSUE W/PULSE CERTIFIED NURSE MIDWIFE THANK YOU! Meli (This form is maintained as a part of the permanent medical record) 2014 [employer]. All Rights Reserved Meli Talavera RN, BSN [email or web address] Office: [phone] [facility] HOSPITALJacob
[2017-09-17] MEDS: Metoclopramide HCl 10 MG/10 ML UDCUP PO SCH ×2 (12:18→17:26)
[2017-09-17] MEDS: Potassium Chloride 20 MEQ TAB PO SCH ×2 (12:20→16:18)
[2017-09-17] MEDS: Fluconazole 100 MG TAB PO SCH (12:20)
--- NOTE | 2017-09-17 13:57 | ULT ---
RIGHT UPPER QUADRANT ABDOMINAL ULTRASOUND: COMPARISON: CT abdomen/pelvis 09/13/17. HISTORY: Right upper quadrant abdominal pain with nausea and vomiting. TECHNIQUE: Multiplanar, figueroa scale, and color Doppler images were obtained in a right upper quadrant abdominal u ltrasound. FINDINGS: The liver is normal in echogenicity without focal lesions or intrahepatic ductal dilatation. The gal lbladder contains no stones or sludge. There is a possible small amount of pericholecystic fluid but no gallbladder wall thickening. The common bile duct is normal measuring 7 mm. The visualized portions of the pancreas are unremarkable. The right kidney is normal in echogenicity without hydronephrosis or calculus and measures 13.4 cm in length. There is an incidentally seen sm all right pleural effusion. IMPRESSION: Possible small amount of pericholecystic fluid. This is nonspecific as there are no stones or sludge in the gallbladder. No definite abnormality is seen on CT with no obvious fluid surrounding the gal lbladder and this could be artifactual on ultrasound. POS: EDNA
[2017-09-17] MEDS: Saccharomyces boulardii 250 MG CAP PO SCH (14:03)
--- NOTE | 2017-09-17 14:33 | PDOC.PN ---
- Subjective Encounter Start Date: 09/17/17 Encounter Start Time: 14:32 Subjective: feels ok but w more nausea & vomiting -: pt feels anxiety is part of the problem - Objective MAR Reviewed: Yes Vital Signs & Weight: Vital Signs (12 hours) Temp Pulse Resp BP Pulse Ox 09/17/17 08:00 98.5 F 59 L 16 95 09/17/17 07:44 98.5 F 59 L 16 133/80 95 Weight Admit Weight 197 lb Weight 197 lb I&O: 09/16/17 09/17/17 09/18/17 06:59 06:59 06:59 Intake Total 2660 Output Total 400 Balance 2260 Result Diagrams: 09/17/17 04:46 09/17/17 04:46 Additional Labs: Accuchecks 09/17/17 09/16/17 09/16/17 05:34 19:42 16:26 POC Glucose 203 H 199 H 177 H Laboratory Tests 09/10/17 09/11/17 09/13/17 20:35 03:33 07:06 Creatinine 0.76 0.70 2.09 H 09/14/17 09/15/17 09/16/17 07:56 09:32 04:34 Creatinine 2.06 H 1.70 H 1.59 H 09/17/17 04:46 Creatinine 1.53 H Phys Exam - Physical Examination Constitutional: NAD HEENT: PERRLA, moist MMs, sclera anicteric, oral pharynx no lesions Neck: no nodes, no JVD, supple, full ROM Respiratory: no wheezing, no rales, no rhonchi, clear to auscultation bilateral Cardiovascular: RRR, no significant murmur Gastrointestinal: soft, non-tender, no distention, positive bowel sounds Musculoskeletal: no edema, pulses present Neurological: non-focal, normal sensation, moves all 4 limbs Psychiatric: normal affect, A&O x 3 Skin: no rash Dx/Plan (1) Sepsis Code(s): A41.9 - SEPSIS, UNSPECIFIED ORGANISM Status: Acute (2) Diabetic ulcer of right foot Code(s): E11.621 - TYPE 2 DIABETES MELLITUS WITH FOOT ULCER; L97.519 - NON-PRS CHRONIC ULCER OTH PRT RIGHT FOOT W UNSP SEVERITY Status: Acute Qualifiers: Diabetic foot ulcer location: midfoot Diabetes mellitus type: type 2 (3) Nausea & vomiting Code(s): R11.2 - NAUSEA WITH VOMITING, UNSPECIFIED Status: Acute Qualifiers: Vomiting type: unspecified (4) JONATHAN (acute kidney injury) Code(s): N17.9 - ACUTE KIDNEY FAILURE, UNSPECIFIED Status: Acute Comment: Likley due to dehydration from diarrhea Vs toradol (5) Hypokalemia Code(s): E87.6 - HYPOKALEMIA Status: Acute (6) Chronic anemia Code(s): D64.9 - ANEMIA, UNSPECIFIED Status: Chronic (7) DM type 2 (diabetes mellitus, type 2) Status: Acute Qualifiers: Diabetes mellitus complication status: with unspecified complications Diabetes mellitus intermodal dispatcher insulin use: without alf use Qualified Code( s): E11.8 - Type 2 diabetes mellitus with unspecified complications Comment: new onset - Plan PT/OT, psych social worker, DVT proph w/SCDs Cont IV ABx for now. GS eval done.? need for amputation.will defer to GS -: GI recs requested for intractable nausea/vomiting. -: reglan TID Scheduled.monitor. -: replace and recheck potassium * . Review of Systems - Review of Systems Constitutional: negative: Fever, Chills, Sweats, Weakness, Malaise, Other Respiratory: negative: Cough, Dry, Shortness of Breath, Hemoptysis, SOB with Excertion, Pleuritic Pain, Sputum, Wheezing Cardiovascular: negative: Chest Pain, Palpitations, Orthopnea, Paroxysmal Noc. Dyspnea, Edema, Light Headedness, Other Gastrointestinal: Nausea, Vomiting Genitourinary: negative: Dysuria, Frequency, Incontinence, Hematuria, Retention , Other Musculoskeletal: negative: Neck Pain, Shoulder Pain, Arm Pain, Back Pain, Hand Pain, Leg Pain, Foot Pain, Other Neurological: negative: Weakness, Numbness, Incoordination, Change in Speech, Confusion, Seizures, Other - Medications/Allergies Allergies/Adverse Reactions: Allergies Allergy/AdvReac Type Severity Reaction Status Date / Time No Known Allergies Allergy Unverified 09/10/17 22:23 Medications: Current Medications Acetaminophen (Tylenol) 1,000 mg PO Q6H PRN PRN Reason: Moderate to Severe Pain (6-10) Dextrose/Water (Dextrose 50%) 25 gm IVP PRN PRN PRN Reason: HYPOGLYCEMIA PROTOCOL Enoxaparin Sodium (Lovenox) 40 mg SC 2100 [facility] Last Admin: 09/16/17 20:01 Dose: 40 mg Fluconazole (Diflucan) 200 mg PO DAILY [facility] Last Admin: 09/17/17 12:20 Dose: 200 mg Glipizide (Glucotrol) 5 mg PO DAILY-AC [facility] Last Admin: 09/17/17 11:04 Dose: Not Given Glucagon (Glucagon) 1 mg IM PRN PRN PRN Reason: HYPOGLYCEMIA PROTOCOL Dextrose/Water (D5w) 1,000 mls @ 0 mls/hr IV INF PRN; As Directed PRN Reason: HYPOGLYCEMIA PROTOCOL Insulin Detemir 10 units/ (Miscellaneous Medication) 0.1 mls @ 0 mls/hr SC BID [facility] Last Admin: 09/17/17 11:04 Dose: Not Given Sodium Chloride (Normal Saline 0.9%) 1,000 mls @ 125 mls/hr IV .Q8H [facility] Last Admin: 09/17/17 14:03 Dose: Not Given Ampicillin Sodium/Sulbactam Sodium 3 gm/ Syringe 1.6 ml/Sterile Water 8 mls @ 32 mls/hr SLOW IVP 0800,1999 [facility] Last Admin: 09/17/17 08:19 Dose: 8 mls Insulin Human Regular (Humulin R) 0 units SC .MODERATE SLIDING SC PRN; Protocol PRN Reason: MODERATE SLIDING SCALE Last Admin: 09/15/17 06:20 Dose: 2 unit Insulin Human Regular (Humulin R) 0 units SC .BEDTIME SLIDING SC PRN; Protocol PRN Reason: BEDTIME SLIDING SCALE Last Admin: 09/14/17 22:50 Dose: 3 unit [facility]op[facility] ([facility]) [facility] Last Admin: 09/17/17 12:18 Dose: 10 mg Morphine Sulfate/Sodium Chloride (Morphine 0.9% Nacl Pf 2 Mg/2ml) 2 mg SLOW IVP Q4H PRN PRN Reason: Severe Pain (7-10) Last Admin: 09/17/17 09:23 Dose: 2 mg Ondansetron HCl (Zofran) 4 mg IVP Q6H PRN PRN Reason: Nausea/Vomiting Last Admin: 09/14/17 05:27 Dose: 4 mg Ondansetron HCl (Zofran Odt) 4 mg PO Q6H PRN PRN Reason: Nausea/Vomiting Polyethylene Glycol (Miralax) 17 gm PO DAILY [facility] Last Admin: 09/17/17 11:04 Dose: Not Given Saccharomyces Boulardii (Florastor) 250 mg PO 1400 [facility] Last Admin: 09/17/17 14:03 Dose: Not Given Sodium Chloride (Flush - Normal Saline) 10 ml IVF Q12HR [facility] Last Admin: 09/17/17 11:05 Dose: Not Given Sodium Chloride (Flush - Normal Saline) 10 ml IVF PRN PRN PRN Reason: Saline Flush Tramadol HCl (Ultram) 50 mg PO Q6H PRN PRN Reason: Mild-Moderate Pain (1-5) Tramadol HCl (Ultram) 100 mg PO Q6H PRN PRN Reason: Moderate to Severe Pain (6-10)
[2017-09-17] MEDS ORDERED: Potassium Chloride 40 MEQ in Sodium Chloride 0.9% 500 ML IVPB SCH (18:00)
[2017-09-17] MEDS: Metoclopramide HCl 10 MG/2 ML VIAL IVP SCH (20:36)
[2017-09-17] MEDS: Enoxaparin Sodium 40 MG/0.4 ML SYRINGE SC SCH (20:39)
[2017-09-17] MEDS: Pantoprazole 40 MG VIAL IVP SCH (20:39)
[2017-09-18] MEDS: Metoclopramide HCl 10 MG/2 ML VIAL IVP SCH ×3 (02:23→15:00)
[2017-09-18] MEDS: Sodium Chloride 0.9% 1,000 ML IV SCH ×2 (04:59→13:27)
[2017-09-18 06:17] LABS: Anion Gap 12 mmol/L (10-20); BUN (Urea Nitrogen) 17 mg/dL (9.8-20.1); Calc. Creatinine Clearance 60 mL/min (70-130); Calcium 8.5 mg/dL (7.8-10.44); Carbon Dioxide 18 mmol/L (22-29); Chloride 114 mmol/L (98-107); Estimated GFR-MDRD 36
--- NOTE | 2017-09-18 06:28 | CON ---
DATE OF CONSULT: 09/17/2017 REASON FOR CONSULTATION: Nausea and vomiting. HISTORY OF PRESENT ILLNESS: Ms. Kurtz is a 56-year-old who has been here in the hospital for 8 day s secondary to right foot cellulitis. She has failed outpatient therapy. She is a poorly controlled diabetic. She is ready to home from the standpoint now, but she apparently is vomiting intermittent ly her foods and medications, though I have not been consulted. She reports that she has had chronic right upper quadrant pain for over 2 years. She has had multiple evaluations for gallbladder ultras ound, HIDA scan, CAT scan, and MRI, all of which have been normal. She has had upper and lower endos copies this March with Dr. Ken in [place] which were normal and her doctor, Dr. Mccollum, who is her primary physician in [place], [place], thought it was probably related to her diabetes or stress or possibly some muscle strength. In any event, she has not had any weight loss. Her labs are notab le for the fact, her hemoglobin A1c is over 12. She denies any dysphagia or odynophagia. She has be en tried on Reglan orally here, is on probiotic. Normal saline at 125, sliding scale insulin. Her s ugars have been over low sugar, since she has been in the hospital has been 166 and the highest has b een 250, the most are over 200. PAST MEDICAL HISTORY: 1. Longstanding diabetes, poorly controlled. 2. Diabetic neuropathy, probably mononeuropathy, multiplex in the right side. 3. Probable gastroparesis. PAST SURGICAL HISTORY: Hysterectomy. SOCIAL HISTORY: Patient works . FAMILY HISTORY: Coronary artery disease. HOME MEDICATIONS: Saccharomyces boulardii, Reglan 10 p.o. a.c. p.r.n., insulin 20 b.i.d. of NPH and regular Lantus 15 b.i.d., Diflucan 200 mg daily, amoxicillin at home. Here, she is on amoxicillin IV , Lovenox, Diflucan p.o., Reglan 10 mg a.c. and at bedtime p.o., saccharomyces boulardii, MiraLax, Zo rika, tramadol, and normal saline. REVIEW OF SYSTEMS: Negative for headache. Negative for dysphagia or odynophagia. Negative for weig ht loss. Negative for melena, hematochezia, or hematemesis. She has a right upper quadrant pain. S he believes, it feels better when she takes the aspirin. Sometimes it also feels better if she takes Imodium when she has loose stools. PHYSICAL EXAMINATION: VITAL SIGNS: Temperature is 98, pulse 58, blood pressures 133/80. LUNGS: Clear. HEART: Regular rate and rhythm without clicks or murmurs. ABDOMEN: Soft, nontender, no palpable hepatosplenomegaly. NEUROLOGIC: She is overweight. She has had no point tenderness in the ribs on the right side. No C VA tenderness. LABORATORY STUDIES: Sodium 141, potassium 3.3, BUN and creatinine 19 and 1.5, glucose 189 today is 1 81, 219, 137, 189, 203. Hemoglobin A1c was 12.7 on 09/12/2017. Liver function tests have been indio l, lipase has been normal. CBC: White count 8.3, hemoglobin 12, platelet count is 202. ASSESSMENT: 1. I think a lot of her pain in her back and side are related to diabetic neuropathy. 2. Nausea, vomiting or exacerbation of gastroparesis which has seems she had a baseline at home and probably have some effect from the antibiotics medicines she has been on. RECOMMENDATIONS: We will perform an EGD to make sure it is not a Natalia or yeast in her esophagus; if it is negative, the Diflucan as be stopped. She has been on IV Reglan, IV PPI, and her glucose ne eds to be controlled aggressively. We will defer Internal Medicine to do that.
[2017-09-18] MEDS: Pantoprazole 40 MG VIAL IVP SCH (08:31)
[2017-09-18] MEDS: Insulin Detemir 100 UNITS/ML 10 UNITS in Pre-Filled Syringe 1 EACH SC SCH (08:37)
[2017-09-18] MEDS: glipiZIDE 5 MG TAB PO SCH (08:37)
[2017-09-18] MEDS: Ampicillin/Sulbactam 3 GM, Syringe 1.6 ML in Sterile Water 6.4 ML SLOW IVP SCH (08:44)
[2017-09-18] MEDS: Polyethylene Glycol 3350 17 GM Packet PO SCH (08:55)
[2017-09-18] MEDS ORDERED: Fluconazole In NaCl,Iso-Osm 200 MG in Premix Bag 1 BAG IVPB SCH ×2 (09:00)
--- NOTE | 2017-09-18 12:47 | OP ---
DATE OF PROCEDURE: 09/18/2017 PROCEDURE: Esophagogastroduodenoscopy with biopsy. DESCRIPTION OF PROCEDURE: After informed consent was obtained from the patient , including risks of infection, bleeding, perforation, and reaction to anesthesia, the patient was transferred to the endoscopy suite and after a timeout, deep sedation was administered via anesthesia support. The standard gastroscope was then advanced through the mouth into the esophagus, stomach and first and second portion of the intestines with careful inspection upon withdrawal. FINDINGS: Duodenum: Normal appearing mucosa was seen in both the duodenal bulb and second portion of the duodenum. There was no evidence of erosions, ulcerations , or mass lesions. Stomach: There was minimal increased mucosal erythema noted in the gastric antrum without associated erosions or ulcerations. Random biopsies were taken from the antrum, incisura, and body for determination of H. pylori status. Otherwise, the remainder of the stomach appeared normal including normal mucosa seen in the cardia, fundus, body and incisura. There was no evidence of erosions, ulcerations, or mass lesions. There were no abnormalities noted on gastric retroflexion. Esophagus: Normal appearing mucosa was seen in the proximal, mid and distal esophagus. There was no evidence of esophagitis, erosions, ulcerations, or mass lesions. IMPRESSION: 1. Minimal erythema in the distal gastric antrum consistent with mild gastritis. 2. Otherwise, normal upper endoscopy. RECOMMENDATIONS: 1. Follow up with primary inpatient team. 2. Continue daily PPI for nausea and vomiting. 3. Continue antiemetic regimen including Zofran and p.r.n. use of metoclopramide. 4. Continue bowel regimen of polyethylene glycol to avoid constipation in a patient with probable diabetic neuropathy and possibly diabetic gastroparesis. 5. Can start patient on clear liquid diet and advance as tolerated. 6. Follow up in GI clinic in 2 weeks. We will sign off at this time. Please call with any questions. TITO
[2017-09-18 13:18] VITALS: BP 171/96; TEMP 98.3
--- NOTE | 2017-09-18 13:58 | PDOC.PN ---
- Subjective Encounter Start Date: 09/18/17 Encounter Start Time: 13:56 Subjective: s/p EGD.doing well. no more vomiting today - Objective MAR Reviewed: Yes Vital Signs & Weight: Vital Signs (12 hours) Temp Pulse Resp BP BP Pulse Ox 09/18/17 13:17 98.3 F 57 L 16 171/96 H 96 09/18/17 08:00 98.8 F 71 16 09/18/17 07:45 98.8 F 71 16 156/75 H 92 L Weight Admit Weight 197 lb Weight 197 lb I&O: 09/17/17 09/18/17 09/19/17 06:59 06:59 06:59 Intake Total 2660 2044 Output Total 400 Balance 0 2044 Result Diagrams: 09/17/17 04:46 09/18/17 04:37 Additional Labs: Accuchecks 09/18/17 09/18/17 09/18/17 13:22 10:49 04:23 POC Glucose 184 H 185 H 184 H 09/17/17 19:32 POC Glucose 193 H Microbiology 09/16/17 11:34 Stool Campylobacter Antigen Assay - Final 09/16/17 11:34 Stool Shiga Toxin Test - Final 09/16/17 11:34 Stool C. difficile GDH Antigen & Toxins - Final 09/11/17 12:17 Foot - Right Bacterial Culture - Final 09/11/17 12:17 Foot - Right Anaerobic Culture - Final Enterococcus species Streptococcus agalactiae Gp. B Streptococcus anginosus Group Presumptive Natalia albicans Peptostrept. asaccharolyticus 09/11/17 08:35 Foot - Pending Bacterial Culture - Final Enterococcus species Streptococcus agalactiae Gp. B Yeast species Yeast species#2 09/10/17 20:35 Venous blood - Right Arm Blood Culture - Final NO GROWTH IN 5 DAYS 09/10/17 20:35 Venous blood - Left Arm Blood Culture - Final NO GROWTH IN 5 DAYS 09/10/17 20:34 Urine clean catch Urine Culture - Final 09/16/17 11:34 Stool Stool Culture - Preliminary Phys Exam - Physical Examination Constitutional: NAD HEENT: PERRLA, moist MMs, sclera anicteric, oral pharynx no lesions Neck: no nodes, no JVD, supple, full ROM Respiratory: no wheezing, no rales, no rhonchi, clear to auscultation bilateral Cardiovascular: RRR, no significant murmur, no rub, gallop Gastrointestinal: soft, non-tender, no distention, positive bowel sounds Musculoskeletal: no edema, pulses present Neurological: non-focal, normal sensation, moves all 4 limbs Psychiatric: normal affect, A&O x 3 Skin: no rash Dx/Plan (1) Sepsis Code(s): A41.9 - SEPSIS, UNSPECIFIED ORGANISM Status: Resolved (2) Diabetic ulcer of right foot Code(s): E11.621 - TYPE 2 DIABETES MELLITUS WITH FOOT ULCER; L97.519 - NON-PRS CHRONIC ULCER OTH PRT RIGHT FOOT W UNSP SEVERITY Status: Acute Qualifiers: Diabetic foot ulcer location: midfoot Diabetes mellitus type: type 2 (3) Nausea & vomiting Code(s): R11.2 - NAUSEA WITH VOMITING, UNSPECIFIED Status: Resolved Qualifiers: Vomiting type: unspecified (4) JONATHAN (acute kidney injury) Code(s): N17.9 - ACUTE KIDNEY FAILURE, UNSPECIFIED Status: Acute Comment: Likley due to dehydration from diarrhea Vs toradol (5) Hypokalemia Code(s): E87.6 - HYPOKALEMIA Status: Resolved (6) Chronic anemia Code(s): D64.9 - ANEMIA, UNSPECIFIED Status: Chronic (7) DM type 2 (diabetes mellitus, type 2) Status: Acute Qualifiers: Diabetes mellitus complication status: with unspecified complications Diabetes mellitus machine long goods helper insulin use: without machine long goods helper use Qualified Code( s): E11.8 - Type 2 diabetes mellitus with unspecified complications Comment: new onset - Plan plan discussed w/ family, DVT proph w/SCDs OK to DC home on PO ABx.will f/u w GS/wound care as an OP -: cont reglan prn for gastroparesis.OP f/u w her own GI doctor -: Insulin script given.cont glipizide. -: meds reconciled again today -: mild gastritis on EGD.cont PPI * . Review of Systems - Review of Systems Constitutional: negative: Fever, Chills, Sweats, Weakness, Malaise, Other Respiratory: negative: Cough, Dry, Shortness of Breath, Hemoptysis, SOB with Excertion, Pleuritic Pain, Sputum, Wheezing Cardiovascular: negative: Chest Pain, Palpitations, Orthopnea, Paroxysmal Noc. Dyspnea, Edema, Light Headedness, Other Gastrointestinal: negative: Nausea, Vomiting, Abdominal Pain, Diarrhea, Constipation, Melena, Hematochezia, Other Genitourinary: negative: Dysuria, Frequency, Incontinence, Hematuria, Retention , Other Musculoskeletal: negative: Neck Pain, Shoulder Pain, Arm Pain, Back Pain, Hand Pain, Leg Pain, Foot Pain, Other Neurological: negative: Weakness, Numbness, Incoordination, Change in Speech, Confusion, Seizures, Other - Medications/Allergies Allergies/Adverse Reactions: Allergies Allergy/AdvReac Type Severity Reaction Status Date / Time No Known Allergies Allergy Unverified 09/10/17 22:23 Medications: Current Medications Acetaminophen (Tylenol) 1,000 mg PO Q6H PRN PRN Reason: Pain (1-3) Dextrose/Water (Dextrose 50%) 25 gm IVP PRN PRN PRN Reason: HYPOGLYCEMIA PROTOCOL Enoxaparin Sodium (Lovenox) 40 mg SC 2100 [facility] Last Admin: 09/17/17 20:39 Dose: 40 mg Glipizide (Glucotrol) 5 mg PO DAILY-AC [facility] Last Admin: 09/18/17 08:37 Dose: Not Given Glucagon (Glucagon) 1 mg IM PRN PRN PRN Reason: HYPOGLYCEMIA PROTOCOL Dextrose/Water (D5w) 1,000 mls @ 0 mls/hr IV INF PRN; As Directed PRN Reason: HYPOGLYCEMIA PROTOCOL Insulin Detemir 10 units/ (Miscellaneous Medication) 0.1 mls @ 0 mls/hr SC BID [facility] Last Admin: 09/18/17 08:37 Dose: Not Given Sodium Chloride (Normal Saline 0.9%) 1,000 mls @ 125 mls/hr IV .Q8H [facility] Last Admin: 09/18/17 13:27 Dose: Not Given Ampicillin Sodium/Sulbactam Sodium 3 gm/ Syringe 1.6 ml/Sterile Water 8 mls @ 32 mls/hr SLOW IVP 0800,1999 [facility] Last Admin: 09/18/17 08:44 Dose: 8 mls Fluconazole/Sodium Chloride (200 mg/ Device) 100 mls @ 100 mls/hr IVPB DAILY [facility] Last Admin: 09/18/17 11:00 Dose: Not Given Insulin Human Regular (Humulin R) 0 units SC .MODERATE SLIDING SC PRN; Protocol PRN Reason: MODERATE SLIDING SCALE Last Admin: 09/15/17 06:20 Dose: 2 unit Insulin Human Regular (Humulin R) 0 units SC .BEDTIME SLIDING SC PRN; Protocol PRN Reason: BEDTIME SLIDING SCALE Last Admin: 09/14/17 22:50 Dose: 3 unit Metoclopramide HCl (Reglan) 10 mg IVP 0200,0800,1400,2000 [facility] Last Admin: 09/18/17 08:30 Dose: 10 mg Morphine Sulfate/Sodium Chloride (Morphine 0.9% Nacl Pf 2 Mg/2ml) 2 mg SLOW IVP Q4H PRN PRN Reason: Severe Pain (9-10) Last Admin: 09/17/17 09:23 Dose: 2 mg Ondansetron HCl (Zofran) 4 mg IVP Q6H PRN PRN Reason: Nausea/Vomiting Last Admin: 09/14/17 05:27 Dose: 4 mg Ondansetron HCl (Zofran Odt) 4 mg PO Q6H PRN PRN Reason: Nausea/Vomiting Pantoprazole Sodium (Protonix) 40 mg IVP Q12HR [facility] Last Admin: 09/18/17 08:31 Dose: 40 mg Polyethylene Glycol (Miralax) 17 gm PO DAILY [facility] Last Admin: 09/18/17 08:55 Dose: Not Given Saccharomyces Boulardii (Florastor) 250 mg PO 1400 [facility] Last Admin: 09/17/17 14:03 Dose: Not Given Sodium Chloride (Flush - Normal Saline) 10 ml IVF Q12HR [facility] Last Admin: 09/18/17 08:55 Dose: Not Given Sodium Chloride (Flush - Normal Saline) 10 ml IVF PRN PRN PRN Reason: Saline Flush Tramadol HCl (Ultram) 50 mg PO Q6H PRN PRN Reason: Pain (4-6) Tramadol HCl (Ultram) 100 mg PO Q6H PRN PRN Reason: Pain (7-8)
--- NOTE | 2017-09-18 14:12 | DIS ---
DATE OF ADMISSION: 09/10/2017 DATE OF DISCHARGE: 09/18/2017 CONDITION AT THE TIME OF DISCHARGE: Stable and improved. Please refer to my discharge summary dictated on 09/16/2017 for extensive details. Discharge was held at that time due to concerns of worsening wound infection. HOSPITAL COURSE: The patient was found to have some questionable worsening of her diabetic foot infe ction. As per the wound care nurse, she probably would need more I&D. She was seen again by General Surgery, Dr. Graham, and in his opinion she would require an amputation. Her MRI was reviewed and i t did not show any evidence of any deeper complicated process like osteomyelitis. Infectious Disease has actually cleared her to go home on oral antibiotics. Given all of these findings, the patient r efused amputation and Dr. Graham agreed that she can go home on oral antibiotic with wound VAC with o utpatient followup. The discharge was also delayed for Gastroenterology consultation as was done by Dr. Graham. The andrew ent has history of nausea, vomiting, and diarrhea for years and is under the care of her gastroentero logist as an outpatient with recent EGD and colonoscopy about 5 months ago. An ultrasound was repeat ed which did not show any specific stone or sludge. Dr. Blanca saw the patient and recommended a re peat EGD which was done earlier today. It was negative except for mild gastritis. The patient was g iven a trial of Reglan and that has been worked very well. She probably has diabetic gastroparesis v ersus IBS or a combination of both as dictated in my discharge summary dated 09/16/2017. At this time, the patient is status post EGD and doing wonderfully. The care was discussed with the patient, her mother and her sister present in the room. I went over the list of discharge medication s once again with her. She verbalized understanding. DISCHARGE MEDICATIONS: As per my discharge summary dictated 09/16/2017. One more medication was add ed today and that is Glipizide 5 mg daily. She will follow up with her primary care physician, Dr. Levar Leal in [place]. Home health was set up for her wound care and wound VAC. Total time spent in the discharge of this patient is 32 minutes including the [id number] interactio n.
[2017-09-18] MEDS: Saccharomyces boulardii 250 MG CAP PO SCH (14:59)
[2017-09-18] MEDS ORDERED: Promethazine HCl 25 MG/ML VIAL IM/IV PRN (15:32)
[2017-09-18] MEDS ORDERED: Ondansetron HCl/PF 4 MG/2 ML Vial IVP PRN (15:32)
[2017-09-18] MEDS ORDERED: HYDROcodone/Acetaminophen 5/325 mg Tablet PO PRN ×2 (15:34)
[2017-09-18] MEDS ORDERED: Morphine Sulfate 2 MG/ML SYRINGE SLOW IVP PRN (15:35)
[2017-09-18] MEDS ORDERED: Lidocaine 1% PF 5 ML VIAL ONE (16:08)
[2017-09-18] MEDS ORDERED: Propofol 200 MG/20 ML VIAL ONE (16:08)
== END 2017-09-18 16:47 | disposition home health service (06) | DRG 854 ==
LOC: ERS 19:49 → ERHOLD 21:56 → T4-B 09-11 15:50
PROVIDERS: ADMIT Internal Medicine; ATTEND Internal Medicine
PROC: 0JBQ0ZZ Excision of Right Foot Subcutaneous Tissue and Fascia, Open Approach (ICD-10-PCS; principal; 2017-09-11)
PROC: 0Y9M0ZZ Drainage of Right Foot, Open Approach (ICD-10-PCS; 2017-09-11)
PROC: 0DB68ZX Excision of Stomach, Via Natural or Artificial Opening Endoscopic, Diagnostic (ICD-10-PCS; 2017-09-18)
PROC: 0DB78ZX Excision of Stomach, Pylorus, Via Natural or Artificial Opening Endoscopic, Diagnostic (ICD-10-PCS; 2017-09-18)
DX: A41.9 Sepsis, unspecified organism (principal); I96 Gangrene, not elsewhere classified; N17.9 Acute kidney failure, unspecified; E11.621 Type 2 diabetes mellitus with foot ulcer; K31.84 Gastroparesis; E88.81 Metabolic syndrome and other insulin resistance; E11.43 Type 2 diabetes mellitus with diabetic autonomic (poly)neuropathy; E11.65 Type 2 diabetes mellitus with hyperglycemia; E86.0 Dehydration; L03.115 Cellulitis of right lower limb; L02.611 Cutaneous abscess of right foot; N12 Tubulo-interstitial nephritis, not specified as acute or chronic; N30.00 Acute cystitis without hematuria; E11.628 Type 2 diabetes mellitus with other skin complications; Z79.4 Long term (current) use of insulin; L97.519 Non-pressure chronic ulcer of other part of right foot with unspecified severity; K58.0 Irritable bowel syndrome with diarrhea; E87.6 Hypokalemia; D64.9 Anemia, unspecified; S91.331A Puncture wound without foreign body, right foot, initial encounter; W26.8XXA Contact with other sharp object(s), not elsewhere classified, initial encounter; E66.9 Obesity, unspecified; Z68.31 Body mass index [BMI] 31.0-31.9, adult
CPT/HCPCS: 36415; 36416; 74177; 76705; 78227; 80048; 80053; 80202; 81003; 81015; 83036; 83605; 83690; 83735; 84132; 85025; 87015; 87040; 87045; 87046; 87070; 87076; 87077; 87086; 87186; 87205; 87324; 87449; 87899; 88305; 88312; 93005; 96361; 96365; 96366; 96367; 96372; 96375; 96376; A4216; A9537; C9113; G8978-GP-CJ; G8979-GP-CJ; G8980-GP-CJ; J0295; J1170; J1450; J1644; J1650; J1815; J1885; J2001; J2270; J2405; J2543; J2704; J2765; J3010; J3370; J3480; J7050

== ENCOUNTER 2017-10-22 16:55 | Outpatient (CLI) | payer OTHER ==
[2017-10-22 18:08] LABS: #Eosinphils 0.5 thou/uL (0.0-0.7); #Monocytes 0.5 thou/uL (0.11-0.59); #Neutrophils 5.1 thou/uL (1.40-6.50); %Eosinophils 5.8 % (0.0-10.0); %Lymphocytes 24.9 % (21.0-51.0); %Monocytes 5.8 % (0.0-10.0); %Neutrophils 63.6 % (42.0-75.0); Hemoglobin 11.3 g/dL (12.0-16.0); Mean Corpuscular HGB CONC 33.8 g/dL (32.0-36.0); Mean Corpuscular Hemoglobin 29.1 pg (27.0-31.0); Mean Corpuscular Volume 86.2 fl (81.0-99.0); Mean Platelet Volume 8.2 fL (7.4-10.4); Platelet Count 240 thou/uL (130-400); RBC Distribution Width 11.9 % (11.5-14.5); Red Blood Cell (RBC) Count 3.87 mill/uL (4.20-5.40)
[2017-10-22 18:29] LABS: Anion Gap 14 mmol/L (10-20); BUN (Urea Nitrogen) 23 mg/dL (9.8-20.1); Calc. Creatinine Clearance 0 mL/min (70-130); Calcium 10.3 mg/dL (7.8-10.44); Carbon Dioxide 28 mmol/L (22-29); Chloride 101 mmol/L (98-107); Estimated GFR-MDRD 51; Glucose 147 mg/dL (70-105); Potassium 4.2 mmol/L (3.5-5.1); Sodium 139 mmol/L (136-145)
== END 2017-10-22 16:56 | disposition home or self-care (01) ==
LOC: LABBT 16:55
PROVIDERS: ATTEND Specialist
DX: Z01.818 Encounter for other preprocedural examination (principal); L08.9 Local infection of the skin and subcutaneous tissue, unspecified
CPT/HCPCS: 80048; 85025

== ENCOUNTER 2021-11-02 11:25 | Emergency (ER) | payer OTHER ==
[2021-11-02] MEDS ORDERED: Ondansetron PF 4 MG/2 ML Vial ONE (13:55)
[2021-11-02 14:09] LABS: #Eosinphils 0.1 thou/uL (0.0-0.7); #Lymphocytes 1.2 thou/uL (1.20-3.40); #Monocytes 0.6 thou/uL (0.11-0.59); #Neutrophils 5.4 thou/uL (1.40-6.50); %Basophils 0.3 % (0.0-1.0); %Eosinophils 1.2 % (0.0-10.0); %Lymphocytes 16.7 % (21.0-51.0); %Neutrophils 73.9 % (42.0-75.0); Hemoglobin 12.1 g/dL (12.0-16.0); Mean Corpuscular HGB CONC 33.9 g/dL (32.0-36.0); Mean Corpuscular Hemoglobin 28.6 pg (27.0-31.0); Mean Corpuscular Volume 84.3 fL (78.0-98.0); Mean Platelet Volume 8.4 fL (7.4-10.4); Platelet Count 213 thou/uL (130-400); RBC Distribution Width 11.2 % (11.5-14.5); Red Blood Cell (RBC) Count 4.24 mill/uL (4.20-5.40); White Blood Cell (WBC) Count 7.4 thou/uL (4.8-10.8)
[2021-11-02 14:31] LABS: ALT (SGPT) Less than 7 U/L (8-55); AST (SGOT) 7 U/L (5-34); Albumin 3.4 g/dL (3.5-5.0); Alkaline Phosphatase 81 U/L (40-110); Anion Gap 16 mmol/L (10-20); BUN (Urea Nitrogen) 15 mg/dL (9.8-20.1); Bilirubin, Total 1.6 mg/dL (0.2-1.2); Calc. Creatinine Clearance 0 mL/min (70-130); Carbon Dioxide 25 mmol/L (22-29); Chloride 100 mmol/L (98-107); Globulin 3.6 g/dL (2.4-3.5); Glucose 391 mg/dL (70-105); Lipase 27 U/L (8-78); Potassium 3.4 mmol/L (3.5-5.1); Sodium 138 mmol/L (136-145)
== END 2021-11-02 15:10 | disposition home or self-care (01) ==
LOC: ERS 11:25
DX: B34.9 Viral infection, unspecified (principal); E11.9 Type 2 diabetes mellitus without complications
CPT/HCPCS: 76705; 80053; 83690; 85025; 96374; J2405

== ENCOUNTER 2023-04-28 22:22 | Inpatient (IN) | payer BC ==
[2023-04-28 22:46] LABS: Hemoglobin 10.7 g/dL (12.0-16.0); Mean Corpuscular HGB CONC 33.6 g/dL (32.0-36.0); Mean Corpuscular Volume 86.2 fl (78.0-98.0); Mean Platelet Volume 11.2 fL (7.4-10.4); Platelet Count 169 10x3/uL (130-400); RBC Distribution Width 12.6 % (11.5-14.5); Red Blood Cell (RBC) Count 3.69 mill/uL (4.20-5.40); White Blood Cell (WBC) Count 10.4 10x3/uL (4.8-10.8)
[2023-04-28] MEDS ORDERED: Cefepime 2 GM VIAL ONE (22:48)
[2023-04-28 22:49] LABS: Delete Auto Diff?? YES; Manual Diff?? YES
[2023-04-28 23:08] LABS: ALT (SGPT) 39 U/L (8-55); AST (SGOT) 42 U/L (5-34); Albumin 3.4 g/dL (3.4-4.8); Alkaline Phosphatase 145 U/L (40-110); Anion Gap 16 mmol/L (10-20); BUN (Urea Nitrogen) 41 mg/dL (9.8-20.1); Bilirubin, Total 1.4 mg/dL (0.2-1.2); Calc. Creatinine Clearance 0 mL/min (70-130); Calcium 8.9 mg/dL (7.8-10.44); Carbon Dioxide 23 mmol/L (23-31); Chloride 105 mmol/L (98-107); Estimated GFR 25; Globulin 3.7 g/dL (2.4-3.5); Glucose 279 mg/dL (80-115); Protein, Total 7.1 g/dL (5.8-8.1); Sodium 139 mmol/L (136-145)
[2023-04-28 23:09] LABS: Band 41 % (5-11); CellaVision Operator ID LAB.CLH1; Eosinophils 8 % (0-10); Hypochromia SLIGHT = 6-15 cells HPF (0-5); Lymphocytes 8 % (21-51); Metamyelocyte 1 % (0-0); Monocytes 4 % (0-10); Neutrophil 38 % (42-75); Platelet Adequacy Comment Platelets Normal; Polychromasia SLIGHT = 2-3 cells HPF (0-2); Total Cell Count 102
[2023-04-28] MEDS ORDERED: VANCOMYCIN 2 GRAM/500 ML BAG 2 GM in Premix Bag 1 BAG IVPB SCH (23:30)
[2023-04-28 23:31] LABS: Actual Bicarbonate (HCO3v) 22.1 mEq/L (22-28); Base Excess -1.5 mEq/L (-2.0 to +3.0); Calcium, Ionized (venous) 0.98 mmol/L (1.16-1.32); Chloride (VBG) 108 mmol/L (98-106); Hematocrit-VBG 33 % (36.0-47.0); Hemoglobin (Hb) 11.3 g/dL (11.7-16.0); Potassium (VBG) 4.53 mmol/L (3.70-5.30); Sodium 138.8 mmol/L (133-146); pH (venous) 7.441 (7.32-7.43)
[2023-04-28 23:43] LABS: SARS-CoV-2 NAA Rapid Test Not Detected (NotDetected)
[2023-04-28 23:44] LABS: Lipase 67 U/L (8-78)
[2023-04-29] MEDS ORDERED: Acetaminophen 500 MG TAB ONE
[2023-04-29] MEDS ORDERED: Azithromycin 500 MG VIAL ONE (00:29)
[2023-04-29] MEDS ORDERED: Zolpidem Tartrate 5 MG TAB ONE (00:29)
[2023-04-29 02:09] VITALS: BMI 34.2
[2023-04-29] MEDS ORDERED: Senokot S 8.6-50 MG TAB PO PRN (04:53)
[2023-04-29] MEDS ORDERED: Acetaminophen 325 MG TAB PO PRN (04:53)
[2023-04-29] MEDS ORDERED: Ondansetron ODT 4 MG TAB PO PRN (04:53)
[2023-04-29] MEDS ORDERED: Glucagon 1 MG/ML KIT IM PRN (05:05)
[2023-04-29] MEDS ORDERED: Dextrose 50% Abboject 50 ML SYRINGE SLOW IVP PRN (05:05)
[2023-04-29] MEDS ORDERED: Ipratropium/Albuterol 3 ML NEB NEB PRN (05:05)
[2023-04-29] MEDS ORDERED: Dextrose 5% in Water 1,000 ML IV PRN (05:05)
[2023-04-29] MEDS ORDERED: HumaLOG 300 UNITS/3 ML VIAL SC PRN ×2 (05:05)
[2023-04-29] MEDS: Levothyroxine Sodium 50 MCG TAB PO SCH (05:16)
[2023-04-29] MEDS ORDERED: Furosemide 20 MG TAB PO SCH (09:00)
[2023-04-29] MEDS: Apixaban 5 MG TAB PO SCH ×2 (09:23→20:57)
[2023-04-29] MEDS: DULoxetine 30 MG CAP PO SCH (09:23)
[2023-04-29] MEDS: Metoprolol Tartrate 25 MG TAB PO SCH ×2 (09:23→20:57)
[2023-04-29] MEDS: Famotidine 20 MG TAB PO SCH (09:23)
[2023-04-29] MEDS: Gabapentin 100 MG CAP PO SCH ×3 (09:23→20:57)
[2023-04-29] MEDS: Cefepime 1 GM in Sodium Chloride 0.9% 100 ML IVPB SCH (11:30)
[2023-04-29] MEDS: HumaLOG 300 UNITS/3 ML VIAL SC PRN (11:55)
[2023-04-30] MEDS: Cefepime 1 GM in Sodium Chloride 0.9% 100 ML IVPB SCH (01:04)
[2023-04-30 05:29] LABS: #Eosinphils 0.1 thou/uL (0.0-0.7); #Monocytes 0.7 thou/uL (0.11-0.59); #Neutrophils 7.3 thou/uL (1.40-6.50); %Basophils 0.3 % (0.0-1.0); %Eosinophils 1.3 % (0.0-10.0); %Lymphocytes 21.3 % (21.0-51.0); %Monocytes 6.3 % (0.0-10.0); %Neutrophils 70.2 % (42.0-75.0); Mean Corpuscular HGB CONC 31.7 g/dL (32.0-36.0); Mean Corpuscular Hemoglobin 28.3 pg (27.0-31.0); Mean Platelet Volume 11.9 fL (7.4-10.4); Platelet Count 158 10x3/uL (130-400); RBC Distribution Width 12.9 % (11.5-14.5); Red Blood Cell (RBC) Count 2.83 mill/uL (4.20-5.40); White Blood Cell (WBC) Count 10.3 10x3/uL (4.8-10.8)
[2023-04-30 05:49] LABS: Manual Diff?? YES
[2023-04-30 05:56] LABS: Anion Gap 10 mmol/L (10-20); BUN (Urea Nitrogen) 37 mg/dL (9.8-20.1); Calc. Creatinine Clearance 50 mL/min (70-130); Calcium 8.4 mg/dL (7.8-10.44); Carbon Dioxide 24 mmol/L (23-31); Chloride 108 mmol/L (98-107); Estimated GFR 32; Glucose 146 mg/dL (80-115); Potassium 4.4 mmol/L (3.5-5.1); Sodium 138 mmol/L (136-145)
[2023-04-30 06:26] LABS: Band 13 % (5-11); Eosinophils 1 % (0-10); Lymphocytes 16 % (21-51); Monocytes 1 % (0-10); Neutrophil 69 % (42-75); Platelet Adequacy Comment Platelets Normal; Total Cell Count 102
[2023-04-30] MEDS: Levothyroxine Sodium 50 MCG TAB PO SCH (06:33)
[2023-04-30] MEDS: Famotidine 20 MG TAB PO SCH (08:24)
[2023-04-30] MEDS: Metoprolol Tartrate 25 MG TAB PO SCH (08:24)
[2023-04-30] MEDS: Apixaban 5 MG TAB PO SCH (08:25)
[2023-04-30] MEDS: DULoxetine 30 MG CAP PO SCH (08:25)
[2023-04-30] MEDS: Gabapentin 100 MG CAP PO SCH ×2 (08:25→14:28)
[2023-04-30] MEDS ORDERED: Amoxicillin/Potassium Clav 500 MG TAB PO SCH (09:00)
[2023-04-30] MEDS: HumaLOG 300 UNITS/3 ML VIAL SC PRN (11:33)
[2023-04-30 16:26] VITALS: BP 149/76; TEMP 98.1
== END 2023-04-30 17:33 | disposition home or self-care (01) | DRG 871 ==
LOC: ERS 22:22 → 2SE 04-29 00:47 → OBSVTOIN 04-30 10:23
PROVIDERS: ADMIT Student in an Organized Health Care Education/Training Program; ATTEND Internal Medicine
DX: A41.9 Sepsis, unspecified organism (principal); J18.9 Pneumonia, unspecified organism; N17.9 Acute kidney failure, unspecified; E03.9 Hypothyroidism, unspecified; N18.31 Chronic kidney disease, stage 3a; E66.9 Obesity, unspecified; Z20.822 Contact with and (suspected) exposure to COVID-19; E11.42 Type 2 diabetes mellitus with diabetic polyneuropathy; E11.22 Type 2 diabetes mellitus with diabetic chronic kidney disease; Z86.718 Personal history of other venous thrombosis and embolism; Z79.01 Long term (current) use of anticoagulants; Z79.890 Hormone replacement therapy; Z79.899 Other long term (current) drug therapy; Z79.4 Long term (current) use of insulin; Z90.89 Acquired absence of other organs; Z89.411 Acquired absence of right great toe
CPT/HCPCS: 36415; 36416; 71045; 74176; 80048; 80053; 82805; 83605; 83690; 84484; 85025; 87040; 87077; 87149; 87186; 93005; 93970; 96365; 96366; 96367; 96376; 97139; G0378; J0456; J0692; J1815; J3370; J3490